=== PATIENT | male | born 1965 | race Caucasian/White ===

== ENCOUNTER 2016-12-15 13:13 | Inpatient (IN) | payer OTHER ==
[2016-12-15] MEDS: ceFAZolin 2 GM/DEXTROSE 100 ML IV SCH ×2 (13:24→21:41)
[2016-12-15] MEDS ORDERED: SUCCINYLCHOLINE CHLORIDE 200 MG/10 ML VIAL IVP ONE (13:27)
[2016-12-15] MEDS ORDERED: fentaNYL 100 MCG/2 ML INJ ONE ×4 (13:27→19:58)
[2016-12-15] MEDS ORDERED: ETOMIDATE 20 MG/10 ML VIAL IVP ONE (13:27)
[2016-12-15] MEDS ORDERED: fentaNYL 100 MCG/2 ML INJ IVP ONE ×4 (13:29→14:46)
[2016-12-15] MEDS ORDERED: KETAMINE 500 MG in D5W 500 ML IV SCH (13:30)
[2016-12-15] MEDS ORDERED: TDAP ADULT 0.5 ML INJ (BOOSTRIX) IM ONE (13:30)
[2016-12-15] MEDS ORDERED: NARCOTIC DRIP BAG-TOTAL ALL TYPES IV PRN (13:40)
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
[2016-12-15] MEDS ORDERED: PANTOPRAZOLE SODIUM 40 MG VIAL ONE (13:50)
[2016-12-15] MEDS ORDERED: TRANEXAMIC ACID 1,000 MG/10 ML VIAL ONE (13:51)
[2016-12-15] MEDS ORDERED: NS 100 ML BAG IV ONE (13:51)
[2016-12-15] MEDS ORDERED: KETAMINE 100 MG/10 ML SYR IVP ONE ×3 (14:15→21:23)
[2016-12-15 15:08] LABS: BASE EXCESS -9.3 mEq/L (-2.5-2.5); BICARBONATE 18 mEq/L (22-26); MEASURED OXYGEN SATURATION 97 % (92-95); PCO2 44 mmHg (34-38); PO2 117 mmHg (65-75); TCO2 19 mEq/L (23-27)
[2016-12-15 15:09] LABS: O2 CONCENTRATIION 100 % (0-100); P/F RATIO 117 RATIO
[2016-12-15] MEDS ORDERED: PROPOFOL/EMULSION 1,000 MG/100 ML BOTTLE IV ONE (15:19)
[2016-12-15] MEDS: PANTOPRAZOLE SODIUM 80 MG in NS 100 ML IV SCH (15:23)
[2016-12-15] MEDS ORDERED: PROPOFOL/EMULSION 50 ML IV ONE (15:24)
[2016-12-15] MEDS ORDERED: PROPOFOL 200 MG/20 ML VIAL IVP ONE (15:28)
[2016-12-15 15:41] LABS: % IMMATURE GRANULYOCYTES 0.7 % (0.0-1.1); ABSOLUTE IMMATURE GRANULOCYTES 0.07 10^3/uL (0.00-0.10); ADD DIFF? NO; ADD MORPH? NO; ADD SCAN? YES; ATYPICAL LYMPHOCYTE FLAG 10 (0-99); FRAGMENT RBC FLAG 0 (0-99); HEMATOCRIT 36.6 % (40.0-51.0); HEMOGLOBIN 12.1 g/dL (13.7-17.5); LIPEMIA HEMOLYSIS FLAG 80 (0-99); MEAN CELL HEMOGLOBIN 30.1 pg (27.9-34.1); MEAN CELL HEMOGLOBIN CONCENTR. 33.1 g/dL (32.4-36.7); MEAN PLATELET VOLUME 10.1 fL (8.7-11.7); PLATELET COUNT 131 10^3/uL (150-400); RED BLOOD CELL COUNT 4.02 10^6/uL (4.40-6.38); RED CELL DISTRIBUTION WIDTH 13.7 % (11.5-15.2)
[2016-12-15 15:43] LABS: LEFT SHIFT FLG 130 (0-99); PLATELET CLUMPS FLAG 130 (0-99)
[2016-12-15 15:52] LABS: APTT 36.1 SEC (23.0-38.0); INR 1.25 (0.83-1.16); PROTIME(PATIENT) 15.7 SEC (12.0-15.0)
[2016-12-15] MEDS ORDERED: LABETALOL HCL 5 MG/ML 20 ML MDV ONE (16:02)
[2016-12-15 16:03] LABS: ALBUMIN 3.5 g/dL (3.5-5.0); ANION GAP 16 mEq/L (8-16); ASPARTATE AMINOTRANSFERASE 167 IU/L (17-59); BILIRUBIN,TOTAL 1.1 mg/dL (0.1-1.4); CALCIUM 8.1 mg/dL (8.5-10.4); CARBON DIOXIDE 19 mEq/l (22-31); CHLORIDE 106 mEq/L (97-110); CREATININE 1.1 mg/dL (0.7-1.3); ETHANOL SERUM < 10 mg/dL (0-10); GLOMERULAR FILTRATION RATE > 60; GLUCOSE 141 mg/dL (70-100); LACTATE DEHYDROGENASE 1710 IU/L (313-618); MAGNESIUM 1.9 mg/dL (1.6-2.3); POTASSIUM 4.2 mEq/L (3.5-5.2); SODIUM 141 mEq/L (134-144)
[2016-12-15] MEDS ORDERED: LABETALOL HCL 5 MG/ML 20 ML MDV IVP ONE (16:04)
[2016-12-15 16:06] LABS: SCAN POSITIVE
[2016-12-15] MEDS ORDERED: ADENOSINE 6 MG/2 ML VIAL ONE (16:08)
[2016-12-15 16:11] LABS: PLATELET ESTIMATE ADEQUATE (ADEQ)
[2016-12-15 16:12] LABS: ACANTHOCYTES 1+; ECHINOCYTES 1+
[2016-12-15] MEDS ORDERED: DILTIAZEM 25 MG/5 ML VIAL IVP ONE (16:19)
[2016-12-15] MEDS ORDERED: DILTIAZEM 25 MG/5 ML VIAL IVP SCH (16:20)
[2016-12-15] MEDS ORDERED: DILTIAZEM 125 MG in D5W 125 ML IV ONE (16:23)
[2016-12-15] MEDS ORDERED: DEXMEDETOMIDINE HCL 400 MCG in NS 100 ML IV ONE (16:30)
[2016-12-15] MEDS ORDERED: DEXMEDETOMIDINE HCL 400 MCG in NS 100 ML IV SCH (16:30)
[2016-12-15] MEDS ORDERED: KETAMINE 100 MG/10 ML SYR ONE ×5 (16:40→21:02)
[2016-12-15] MEDS ORDERED: ROCURONIUM 100 MG/10 ML VIAL IVP ONE (16:41)
[2016-12-15 16:55] LABS: COLOR PALE YELLOW; LEUKOCYTE ESTERASE,URINE NEGATIVE (NEGATIVE); NITRITE,URINE NEGATIVE (NEGATIVE)
--- NOTE | 2016-12-15 17:02 | CPEKG ---
Heart Rate: 87 RR Interval: 690 P-R Interval: 152 QRSD Interval: 72 QT Interval: 336 QTC Interval: 404 P Mayer: 44 QRS Mayer: 45 T Wave Mayer: 48 EKG Severity - NORMAL ECG - EKG Impression: SINUS RHYTHM Electronically Signed By: Shaan Hernandez 15-Dec-2016 21:04:36
--- NOTE | 2016-12-15 17:02 | CPEKG ---
Heart Rate: 157 RR Interval: 382 QRSD Interval: 68 QT Interval: 296 QTC Interval: 479 QRS Thorndike: 34 T Wave Thorndike: -13 EKG Severity - ABNORMAL ECG - EKG Impression: ATRIAL FIBRILLATION, V-RATE 116-181 EKG Impression: BORDERLINE T ABNORMALITIES, INFERIOR LEADS EKG Impression: BORDERLINE PROLONGED QT INTERVAL Electronically Signed By: Shaan Hernandez 15-Dec-2016 21:04:36
[2016-12-15] MEDS ORDERED: NS 1,000 ML IV ONE (17:16)
[2016-12-15] MEDS ORDERED: PHENYLEPHRINE HCL 100 MCG/ML SYR IVP ONE (17:17)
[2016-12-15] MEDS ORDERED: PHENYLEPHRINE HCL 50 MG in D5W 250 ML IV ONE (17:28)
[2016-12-15] MEDS ORDERED: PHENYLEPHRINE HCL 50 MG in D5W 250 ML IV SCH ×2 (17:30→19:00)
[2016-12-15] MEDS ORDERED: VASOPRESSIN/DEXTROSE 250 ML IV SCH (17:32)
[2016-12-15 17:40] LABS: PHENCYCLIDINE URINE BCH < 6 ng/ml (NEGATIVE); PHENCYCLIDINE URINE BCH NEGATIVE (NEGATIVE); TETRAHYDROCANNABINOL URINE < 5 ng/mL (NEGATIVE); TETRAHYDROCANNABINOL URINE NEGATIVE (NEGATIVE)
[2016-12-15 17:43] LABS: ADD MORPH? NO; ATYPICAL LYMPHOCYTE FLAG 10 (0-99); FRAGMENT RBC FLAG 0 (0-99); HEMATOCRIT 30.1 % (40.0-51.0); HEMOGLOBIN 10.1 g/dL (13.7-17.5); LIPEMIA HEMOLYSIS FLAG 80 (0-99); MEAN CELL HEMOGLOBIN 30.4 pg (27.9-34.1); MEAN CELL HEMOGLOBIN CONCENTR. 33.6 g/dL (32.4-36.7); MEAN CELL VOLUME 90.7 fL (81.5-99.8); MEAN PLATELET VOLUME 9.7 fL (8.7-11.7); PLATELET CLUMPS FLAG 0 (0-99); PLATELET COUNT 101 10^3/uL (150-400); RED BLOOD CELL COUNT 3.32 10^6/uL (4.40-6.38); RED CELL DISTRIBUTION WIDTH 13.9 % (11.5-15.2)
[2016-12-15 17:50] LABS: LEFT SHIFT FLG 100 (0-99)
[2016-12-15] MEDS ORDERED: VASOPRESSIN/DEXTROSE 250 ML IV ONE ×2 (18:00→19:30)
[2016-12-15 18:10] LABS: ALANINE AMINOTRANSFERASE 98 IU/L (21-72); ALBUMIN 2.5 g/dL (3.5-5.0); ALKALINE PHOSPHATASE 47 IU/L (38-126); ANION GAP 8 mEq/L (8-16); ASPARTATE AMINOTRANSFERASE 149 IU/L (17-59); BILIRUBIN,TOTAL 1.2 mg/dL (0.1-1.4); CALCIUM 6.9 mg/dL (8.5-10.4); CARBON DIOXIDE 23 mEq/l (22-31); CHLORIDE 110 mEq/L (97-110); CREATININE 1.3 mg/dL (0.7-1.3); GLOMERULAR FILTRATION RATE 59; GLUCOSE 105 mg/dL (70-100); MAGNESIUM 1.6 mg/dL (1.6-2.3); POTASSIUM 4.5 mEq/L (3.5-5.2); SODIUM 141 mEq/L (134-144); TOTAL PROTEIN 4.9 g/dL (6.3-8.2)
[2016-12-15 18:14] LABS: ADD SCAN? NO
[2016-12-15 18:15] LABS: ADD DIFF? YES; SCAN POSITIVE
[2016-12-15 18:18] LABS: TEG CONTAINER Citrated Kaolin
[2016-12-15 18:21] LABS: PLATELET ESTIMATE DECREASED (ADEQ)
[2016-12-15 18:23] LABS: ECHINOCYTES 1+
[2016-12-15 18:31] LABS: ALPHA ANGLE 63.7 degrees (53-72); MAXIMUM AMPLITUDE 58.3 mm (50-70); R TIME 4.3 minutes (5-10)
[2016-12-15] MEDS ORDERED: NALOXONE HCL 0.4 MG/ML INJ IVP PRN (18:33)
[2016-12-15] MEDS ORDERED: ceFAZolin 2 GM in D5W 100 ML IV SCH (18:45)
[2016-12-15] MEDS ORDERED: VASOPRESSIN IV ONE (18:53)
[2016-12-15] MEDS ORDERED: NS IV ONE (18:53)
[2016-12-15] MEDS ORDERED: TRANEXAMIC ACID 1,000 MG in NS 500 ML IV ONE (18:55)
[2016-12-15] MEDS ORDERED: VASOPRESSIN 25 UNIT in D5W 250 ML IV ONE (19:30)
[2016-12-15] MEDS: fentaNYL/NACL 100 ML IV SCH (20:18)
[2016-12-15 20:28] LABS: BASE EXCESS -4.2 mEq/L (-2.5-2.5); BICARBONATE 21 mEq/L (22-26); MEASURED OXYGEN SATURATION 84 % (92-95); PCO2 44 mmHg (34-38); PO2 51 mmHg (65-75); TCO2 23 mEq/L (23-27)
[2016-12-15 20:39] LABS: HEMATOCRIT 32.8 % (40.0-51.0); HEMOGLOBIN 11.1 g/dL (13.7-17.5); MEAN CELL HEMOGLOBIN 30.1 pg (27.9-34.1); MEAN CELL HEMOGLOBIN CONCENTR. 33.8 g/dL (32.4-36.7); MEAN CELL VOLUME 88.9 fL (81.5-99.8); RED BLOOD CELL COUNT 3.69 10^6/uL (4.40-6.38); RED CELL DISTRIBUTION WIDTH 13.6 % (11.5-15.2)
[2016-12-15 20:51] LABS: ALANINE AMINOTRANSFERASE 92 IU/L (21-72); ALBUMIN 2.8 g/dL (3.5-5.0); ALKALINE PHOSPHATASE 49 IU/L (38-126); ANION GAP 10 mEq/L (8-16); ASPARTATE AMINOTRANSFERASE 162 IU/L (17-59); BILIRUBIN,TOTAL 1.6 mg/dL (0.1-1.4); CARBON DIOXIDE 21 mEq/l (22-31); CHLORIDE 108 mEq/L (97-110); CREATININE 1.1 mg/dL (0.7-1.3); GLOMERULAR FILTRATION RATE > 60; GLUCOSE 151 mg/dL (70-100); SODIUM 139 mEq/L (134-144); TOTAL PROTEIN 5.4 g/dL (6.3-8.2)
[2016-12-15] MEDS ORDERED: ETOMIDATE 40 MG/20 ML INJ ONE (21:03)
[2016-12-15] MEDS ORDERED: SUCCINYLCHOLINE CHLORIDE*ANESTHESIA ONLY*200 MG/10 ML SYR IVP ONE (21:03)
[2016-12-15] MEDS ORDERED: ROCURONIUM 100 MG/10 ML VIAL ONE (21:04)
[2016-12-15] MEDS ORDERED: LIDOCAINE 2% 5 ML SDV ONE (21:05)
[2016-12-15 21:11] LABS: BASE EXCESS -3.9 mEq/L (-2.5-2.5); BICARBONATE 20 mEq/L (22-26); MEASURED OXYGEN SATURATION 100 % (92-95); PCO2 37 mmHg (34-38); PO2 244 mmHg (65-75); TCO2 21 mEq/L (23-27)
[2016-12-15 21:12] LABS: ASSIST CONTROL YES; END TIDAL CO2 28; PATIENT RATE 19
[2016-12-15 21:15] LABS: O2 CONCENTRATIION 100 % (0-100); P/F RATIO 244 RATIO
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
[2016-12-15 22:32] LABS: TEG CONTAINER Citrated Kaolin
[2016-12-15 22:34] LABS: K TIME 2.1 minutes (1-3); MAXIMUM AMPLITUDE 56.9 mm (50-70); R TIME 4.1 minutes (5-10)
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
[2016-12-15] MEDS: ACETAMINOPHEN 500 MG TAB PO SCH (22:50)
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
[2016-12-16] MEDS: FAMOTIDINE 20 MG/NACL 50 ML IV SCH ×3 (01:25→20:56)
[2016-12-16] MEDS: fentaNYL/NACL 100 ML IV SCH ×2 (04:09→16:43)
[2016-12-16] MEDS: NS 1,000 ML IV SCH (04:18)
[2016-12-16] MEDS: ceFAZolin 2 GM/DEXTROSE 100 ML IV SCH ×3 (04:18→20:54)
[2016-12-16 05:19] LABS: ALANINE AMINOTRANSFERASE 76 IU/L (21-72); ALBUMIN 2.7 g/dL (3.5-5.0); ALKALINE PHOSPHATASE 51 IU/L (38-126); ANION GAP 9 mEq/L (8-16); ASPARTATE AMINOTRANSFERASE 142 IU/L (17-59); BILIRUBIN,TOTAL 1.4 mg/dL (0.1-1.4); CALCIUM 7.3 mg/dL (8.5-10.4); CARBON DIOXIDE 23 mEq/l (22-31); CHLORIDE 107 mEq/L (97-110); GLOMERULAR FILTRATION RATE > 60; GLUCOSE 150 mg/dL (70-100); POTASSIUM 3.9 mEq/L (3.5-5.2); SODIUM 139 mEq/L (134-144); TOTAL PROTEIN 5.3 g/dL (6.3-8.2)
[2016-12-16 05:23] LABS: ADD MORPH? NO; ADD SCAN? YES; ATYPICAL LYMPHOCYTE FLAG 0 (0-99); FRAGMENT RBC FLAG 0 (0-99); HEMATOCRIT 29.3 % (40.0-51.0); HEMOGLOBIN 10.1 g/dL (13.7-17.5); LIPEMIA HEMOLYSIS FLAG 90 (0-99); MEAN CELL HEMOGLOBIN 30.1 pg (27.9-34.1); MEAN CELL HEMOGLOBIN CONCENTR. 34.5 g/dL (32.4-36.7); MEAN CELL VOLUME 87.5 fL (81.5-99.8); MEAN PLATELET VOLUME 10.4 fL (8.7-11.7); PLATELET CLUMPS FLAG 10 (0-99); PLATELET COUNT 85 10^3/uL (150-400); RED BLOOD CELL COUNT 3.35 10^6/uL (4.40-6.38); RED CELL DISTRIBUTION WIDTH 13.8 % (11.5-15.2)
[2016-12-16 05:24] LABS: LEFT SHIFT FLG 300 (0-99)
[2016-12-16 06:29] LABS: SCAN POSITIVE
[2016-12-16 06:30] LABS: ADD DIFF? YES
[2016-12-16 06:34] LABS: PLATELET ESTIMATE DECREASED (ADEQ)
[2016-12-16] MEDS ORDERED: fentaNYL 100 MCG/2 ML INJ ONE ×3 (07:02→12:17)
--- NOTE | 2016-12-16 07:45 | TRAUMAPN ---
Assessment/Plan: 12/16/2016 PAD#1 Tertiary Assessment: 1) Neurologic - Patient awake ( intubated) but following commands and moving all extremities. Still in C-collar (CT neck negative) as unable to yet get a good exam. Continue HOB elevated 30 - awaiting neurosurgery input. 2) Respiratory - AM ABG pending, Intubated, minimal secretions, Vent settings: FiO2 .5, AC 16, TV 650,Peep 5 no wean planned as going to OR this AM Chest tube - minimal air leak, CXR - stable per radiology verbal report. Air exchange equal. no changes planned unless indicated by ABG. 3) Cardiovascular - still on Vasopressin at .4, Jori came off last night but had to be restarted at low dose this AM to maintain MAP > 80. Good urine output (100cc/hr). In NSR, not on diltiazem drip. Hct stable. Right triple lumen placed and left femoral vein access removed. All resuscitation lines (and IO) removed. left femoral A-line placed after inability to get radial a-lines. would like to go to radial if possible as he stabilizes. 4) Coagulopathy - TEG R up last night on repeat but falling. Did get 2 units FFP. TXA infusion completed. Ultrasound this AM show only small clot in greater saphenous vein in right calf. 5) NG - 450 cc green fluid out over night. No bowel sounds yet 6) Fractures - Right sub capital hip fx and Fracture right femur (x2) to be addressed this AM. 7) Wounds - On Ancef, Right elbow, right lateral thigh and left medial knee. All washed out and closed yesterday. Will be washed out again today Plan: Now that optimized will await neurosurgery agreement to proceed to OR for orthopedic procedures. Subjective: intubated but responds to commands Objective: Vital Signs Temp Pulse Resp BP Pulse Ox 37.9 C 75 16 121/67 H 100 12/16/16 06:00 12/16/16 06:00 12/16/16 06:00 12/16/16 06:00 12/16/16 06:00 Laboratory Results 12/16/16 04:40 12/16/16 04:40 12/15/16 12/16/16 12/17/16 05:59 05:59 05:59 Intake Total 3299.0 Output Total 1840 Balance 1459.0 PT 16.6 SEC (12.0-15.0) H 12/15/16 17:31 INR 1.34 (0.83-1.16) H 12/15/16 17:31 - C-Spine Clearance Cervical Spine Cleared: No Physical Exam - Physical Exam General Appearance: alert, mild distress EENT: PERRL/EOMI, normal ENT inspection Neck: other (CT negative but remains in C-collar until he can cooperate with evaluation) Respiratory: lungs clear, normal breath sounds, other (CXR shows chest tube, ET tube and lines in good position ) Cardiac/Chest: regular rate, rhythm, other (on vasopressin and neosynephrine) Peripheral Pulses: 1+: dorsalis-pedis (L) (Pulses biphasic), 2+: dorsalis-pedis (R) Abdomen: distended, other (no bowel sounds) Male Genitalia: deferred Rectal: deferred Back: Other (OK when checked on admission) Skin: normal color, warm/dry Extremities: other (right leg swollen, warm and in minimal traction) Neuro/Psych: alert Time Spent w/Patient (minutes): 30
[2016-12-16] MEDS: ACETAMINOPHEN 500 MG TAB PO SCH ×3 (07:54→20:56)
[2016-12-16 08:02] LABS: ASSIST CONTROL YES; BASE EXCESS -1.9 mEq/L (-2.5-2.5); BICARBONATE 22 mEq/L (22-26); MEASURED OXYGEN SATURATION 99 % (92-95); PCO2 37 mmHg (34-38); PO2 142 mmHg (65-75); TCO2 23 mEq/L (23-27)
[2016-12-16 08:03] LABS: END TIDAL CO2 27; O2 CONCENTRATIION 50 % (0-100); P/F RATIO 284 RATIO; TOTAL RATE 16
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
[2016-12-16] MEDS: PANTOPRAZOLE SODIUM 40 MG in NS 100 ML IV SCH ×2 (08:44→20:56)
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
[2016-12-16] MEDS ORDERED: ROCURONIUM 100 MG/10 ML VIAL ONE ×2 (10:27→13:10)
[2016-12-16] MEDS ORDERED: BUPIVACAINE/EPI 0.5% 30 ML SDV ONE (10:34)
[2016-12-16] MEDS ORDERED: MIDAZOLAM 2 MG/2 ML VIAL ONE (10:51)
[2016-12-16] MEDS ORDERED: ceFAZolin 1 GM/5 ML SYR ONE (11:31)
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
[2016-12-16] MEDS ORDERED: ceFAZolin 1 GM VIAL ONE ×2 (11:51)
[2016-12-16 13:42] LABS: HEMATOCRIT 27.8 % (40.0-51.0); HEMOGLOBIN 9.6 g/dL (13.7-17.5)
[2016-12-16 14:09] LABS: BICARBONATE 20 mEq/L (22-26); MEASURED OXYGEN SATURATION 98 % (92-95); PCO2 36 mmHg (34-38); PO2 110 mmHg (65-75); TCO2 21 mEq/L (23-27)
[2016-12-16] MEDS ORDERED: VASOPRESSIN/DEXTROSE 250 ML IV SCH (15:00)
--- NOTE | 2016-12-16 15:45 | POSTANESTH ---
Post Anesthetic Evaluation Cardiovascular Status: Similar to Pre-Op Cond Respiratory Status: Similar to Pre-op Cond. Level of Consciousness/Mental Status: Unconscious Pain Control: Adequate, Prn Tx Ordered Nausea/Vomiting Control: Adequate, Prn Tx Ordered Complications Possibly Related to Anesthesia: None Noted
--- NOTE | 2016-12-16 16:03 | POSTOPPROG ---
Post Op Note Date of Operation: 12/16/16 Surgeon: Jamil Cleaning Raisin Washer: Tarun Galaviz Anesthesiologist: Rupali Anesthesia: GET(General Endotracheal) Pre-op Diagnosis: open distal femur fracture RT, Rt femoraal neck fracture Post-op Diagnosis: same Procedure: ORIF distal femur, I&D, IMN rt hip Inf/Abcess present in the surg proc area at time of surgery?: No EBL: 100-500 Complications: none
[2016-12-16 16:19] LABS: % IMMATURE GRANULYOCYTES 0.5 % (0.0-1.1); ABSOLUTE IMMATURE GRANULOCYTES 0.03 10^3/uL (0.00-0.10); ADD DIFF? NO; ADD MORPH? NO; ADD SCAN? YES; ATYPICAL LYMPHOCYTE FLAG 0 (0-99); FRAGMENT RBC FLAG 0 (0-99); HEMATOCRIT 27.1 % (40.0-51.0); HEMOGLOBIN 9.4 g/dL (13.7-17.5); LEFT SHIFT FLG 160 (0-99); LIPEMIA HEMOLYSIS FLAG 90 (0-99); MEAN CELL HEMOGLOBIN 30.4 pg (27.9-34.1); MEAN CELL HEMOGLOBIN CONCENTR. 34.7 g/dL (32.4-36.7); MEAN CELL VOLUME 87.7 fL (81.5-99.8); MEAN PLATELET VOLUME 10.2 fL (8.7-11.7); PLATELET CLUMPS FLAG 0 (0-99); PLATELET COUNT 74 10^3/uL (150-400); RED BLOOD CELL COUNT 3.09 10^6/uL (4.40-6.38)
[2016-12-16 16:28] LABS: ANION GAP 8 mEq/L (8-16); CALCIUM 6.9 mg/dL (8.5-10.4); CARBON DIOXIDE 23 mEq/l (22-31); CHLORIDE 105 mEq/L (97-110); CREATININE 0.8 mg/dL (0.7-1.3); GLOMERULAR FILTRATION RATE > 60; GLUCOSE 143 mg/dL (70-100); MAGNESIUM 1.7 mg/dL (1.6-2.3); POTASSIUM 4.2 mEq/L (3.5-5.2); SODIUM 136 mEq/L (134-144)
[2016-12-16 16:31] LABS: INR 1.3 (0.83-1.16); PROTIME(PATIENT) 16.2 SEC (12.0-15.0)
[2016-12-16 16:33] LABS: APTT 33.1 SEC (23.0-38.0)
[2016-12-16 16:46] LABS: SCAN NEGATIVE
[2016-12-16 17:01] LABS: BASE EXCESS -2.5 mEq/L (-2.5-2.5); BICARBONATE 24 mEq/L (22-26); MEASURED OXYGEN SATURATION 96 % (92-95); PCO2 50 mmHg (34-38); PO2 88 mmHg (65-75); TCO2 25 mEq/L (23-27)
[2016-12-16 17:02] LABS: ASSIST CONTROL YES; END TIDAL CO2 34; O2 CONCENTRATIION 40 % (0-100); P/F RATIO 220 RATIO
[2016-12-16] MEDS: PANTOPRAZOLE SODIUM 80 MG in NS 100 ML IV SCH (21:46)
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
[2016-12-17] MEDS: ceFAZolin 2 GM/DEXTROSE 100 ML IV SCH ×3 (03:15→20:26)
[2016-12-17 03:59] LABS: ADD MORPH? NO; ATYPICAL LYMPHOCYTE FLAG 0 (0-99); FRAGMENT RBC FLAG 0 (0-99); HEMATOCRIT 24.5 % (40.0-51.0); HEMOGLOBIN 8.4 g/dL (13.7-17.5); LIPEMIA HEMOLYSIS FLAG 90 (0-99); MEAN CELL HEMOGLOBIN 30.3 pg (27.9-34.1); MEAN CELL HEMOGLOBIN CONCENTR. 34.3 g/dL (32.4-36.7); MEAN CELL VOLUME 88.4 fL (81.5-99.8); MEAN PLATELET VOLUME 10.5 fL (8.7-11.7); PLATELET CLUMPS FLAG 0 (0-99); PLATELET COUNT 68 10^3/uL (150-400); RED BLOOD CELL COUNT 2.77 10^6/uL (4.40-6.38); RED CELL DISTRIBUTION WIDTH 13.8 % (11.5-15.2)
[2016-12-17 04:01] LABS: ADD DIFF? YES; ADD SCAN? NO; LEFT SHIFT FLG 130 (0-99)
[2016-12-17 04:16] LABS: ANION GAP 7 mEq/L (8-16); APTT 31.4 SEC (23.0-38.0); CARBON DIOXIDE 23 mEq/l (22-31); CHLORIDE 104 mEq/L (97-110); CREATININE 0.7 mg/dL (0.7-1.3); GLOMERULAR FILTRATION RATE > 60; GLUCOSE 159 mg/dL (70-100); INR 1.3 (0.83-1.16); POTASSIUM 3.9 mEq/L (3.5-5.2); PROTIME(PATIENT) 16.2 SEC (12.0-15.0); SODIUM 134 mEq/L (134-144)
[2016-12-17 04:33] LABS: PLATELET ESTIMATE DECREASED (ADEQ)
[2016-12-17] MEDS: ACETAMINOPHEN 500 MG TAB PO SCH ×3 (05:15→20:23)
[2016-12-17 05:16] LABS: BASE EXCESS -1.3 mEq/L (-2.5-2.5); BICARBONATE 24 mEq/L (22-26); MEASURED OXYGEN SATURATION 96 % (92-95); TCO2 26 mEq/L (23-27)
[2016-12-17 05:17] LABS: PCO2 50 mmHg (34-38); PO2 88 mmHg (65-75)
[2016-12-17 05:19] LABS: CPAP YES; O2 CONCENTRATIION 40 % (0-100); P/F RATIO 220 RATIO; PATIENT RATE 9; PRESSURE SUPPORT 7
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
[2016-12-17 08:20] LABS: BASE EXCESS -0.8 mEq/L (-2.5-2.5); BICARBONATE 23 mEq/L (22-26); MEASURED OXYGEN SATURATION 99 % (92-95); PCO2 38 mmHg (34-38); PO2 119 mmHg (65-75); TCO2 24 mEq/L (23-27)
[2016-12-17 08:25] LABS: CPAP YES; END TIDAL CO2 28; P/F RATIO 298 RATIO; PRESSURE SUPPORT 7
[2016-12-17 08:26] LABS: O2 CONCENTRATIION 40 % (0-100)
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
[2016-12-17] MEDS: PANTOPRAZOLE SODIUM 40 MG in NS 100 ML IV SCH ×2 (09:27→20:23)
[2016-12-17] MEDS: FAMOTIDINE 20 MG/NACL 50 ML IV SCH (10:16)
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
[2016-12-17] MEDS: ENOXAPARIN 30 MG/0.3 ML SYR SC SCH ×2 (12:42→20:23)
[2016-12-17] MEDS: fentaNYL/NACL 100 ML IV SCH (13:18)
[2016-12-17] MEDS: NS 1,000 ML IV SCH (15:09)
--- NOTE | 2016-12-17 15:33 | WOCRNPDOC ---
WOCRN Advanced Assessment Note - Skin Integrity Problem, Advanced Assess Right Thigh Laceration Dressing Type: ABD Pad Dressing Description: Clean/Dry, Intact Left Knee Laceration Dressing Description: Clean/Dry, Intact Right Elbow Laceration Dressing Type: Dressing Sponge Dressing Description: Saturated Closure Description: [place] Exudate Amount: Excessive Exudate Color: Red Exudate Characteristic(s): Bloody Integumentary Issue Intervention: Dressing Changed (ordered), Dressing Removed Faye Wound Tissue: Intact Site Odor: None Skin Integrity Problem Comment: Excess bleeding around aicha. Discussed instructions with BEBO Cuellar and provided supplies for care. Left Lower Leg Laceration Dressing Type: ABD Pad Dressing Description: Shadowed Exudate Amount: Moderate Exudate Color: Red Exudate Characteristic(s): Bloody Integumentary Issue Intervention: Dressing Changed (orders written), Dressing Removed Faye Wound Tissue: Contused Faye Wound Swelling: Mild Wound Bed Color: Red Wound Bed Constitution: Smooth Tissue Wound Edges: Irregular Site Odor: None Skin Integrity Problem Comment: Abraded contusion, with some bleeding still active. Discussed wound care with BEBO Cuellar, and provided supplies. Left Groin Laceration Dressing Type: Dressing Sponge Dressing Description: Saturated Exudate Amount: Excessive Exudate Color: Red Exudate Characteristic(s): Bloody Integumentary Issue Intervention: Dressing Changed (ordered), Dressing Removed Faye Wound Tissue: Ecchymotic, Intact Faye Wound Swelling: Mild Wound Bed Color: Red Wound Bed Constitution: Smooth Tissue Wound Edges: Irregular Site Odor: None Skin Integrity Problem Comment: Active bleeding--provided BEBO Cuellar with supplies and orders for care.
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
[2016-12-18] MEDS: ceFAZolin 2 GM/DEXTROSE 100 ML IV SCH ×3 (03:34→20:40)
[2016-12-18 05:03] LABS: % IMMATURE GRANULYOCYTES 0.9 % (0.0-1.1); ABSOLUTE IMMATURE GRANULOCYTES 0.05 10^3/uL (0.00-0.10); ADD DIFF? NO; ADD MORPH? NO; ADD SCAN? NO; ATYPICAL LYMPHOCYTE FLAG 10 (0-99); FRAGMENT RBC FLAG 0 (0-99); HEMATOCRIT 22.2 % (40.0-51.0); HEMOGLOBIN 7.6 g/dL (13.7-17.5); LEFT SHIFT FLG 80 (0-99); LIPEMIA HEMOLYSIS FLAG 90 (0-99); MEAN CELL HEMOGLOBIN 30.3 pg (27.9-34.1); MEAN CELL HEMOGLOBIN CONCENTR. 34.2 g/dL (32.4-36.7); MEAN CELL VOLUME 88.4 fL (81.5-99.8); MEAN PLATELET VOLUME 11.1 fL (8.7-11.7); PLATELET CLUMPS FLAG 0 (0-99); PLATELET COUNT 78 10^3/uL (150-400); RED BLOOD CELL COUNT 2.51 10^6/uL (4.40-6.38); RED CELL DISTRIBUTION WIDTH 13.6 % (11.5-15.2)
[2016-12-18] MEDS: ACETAMINOPHEN 500 MG TAB PO SCH ×3 (05:08→20:39)
[2016-12-18 05:12] LABS: INR 1.15 (0.83-1.16); PROTIME(PATIENT) 14.6 SEC (12.0-15.0)
[2016-12-18 05:13] LABS: APTT 34.1 SEC (23.0-38.0)
[2016-12-18 05:14] LABS: BASE EXCESS 1.6 mEq/L (-2.5-2.5); BICARBONATE 26 mEq/L (22-26); MEASURED OXYGEN SATURATION 98 % (92-95); PCO2 47 mmHg (34-38); PO2 104 mmHg (65-75); TCO2 28 mEq/L (23-27)
[2016-12-18 05:15] LABS: CPAP YES; O2 CONCENTRATIION 40 % (0-100); P/F RATIO 260 RATIO
[2016-12-18 05:16] LABS: END TIDAL CO2 39; PATIENT RATE 12
[2016-12-18 05:17] LABS: PRESSURE SUPPORT 7
[2016-12-18 05:25] LABS: ALANINE AMINOTRANSFERASE 51 IU/L (21-72); ALBUMIN 2.5 g/dL (3.5-5.0); ALKALINE PHOSPHATASE 45 IU/L (38-126); ANION GAP 9 mEq/L (8-16); ASPARTATE AMINOTRANSFERASE 98 IU/L (17-59); BILIRUBIN,TOTAL 0.6 mg/dL (0.1-1.4); CALCIUM 7.4 mg/dL (8.5-10.4); CARBON DIOXIDE 25 mEq/l (22-31); CHLORIDE 104 mEq/L (97-110); CREATININE 0.7 mg/dL (0.7-1.3); GLOMERULAR FILTRATION RATE > 60; GLUCOSE 109 mg/dL (70-100); POTASSIUM 3.7 mEq/L (3.5-5.2); SODIUM 138 mEq/L (134-144); TOTAL PROTEIN 4.9 g/dL (6.3-8.2)
[2016-12-18] MEDS: PANTOPRAZOLE SODIUM 40 MG in NS 100 ML IV SCH ×2 (08:01→20:49)
[2016-12-18] MEDS: ENOXAPARIN 30 MG/0.3 ML SYR SC SCH ×2 (08:01→08:38)
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
[2016-12-18] MEDS: NS 1,000 ML IV SCH ×2 (10:57→20:56)
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
[2016-12-18 11:54] LABS: HEMATOCRIT 21.3 % (40.0-51.0); HEMOGLOBIN 7.3 g/dL (13.7-17.5)
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
[2016-12-19] MEDS: ceFAZolin 2 GM/DEXTROSE 100 ML IV SCH ×3 (03:46→20:00)
[2016-12-19 04:06] LABS: % IMMATURE GRANULYOCYTES 1.3 % (0.0-1.1); ABSOLUTE IMMATURE GRANULOCYTES 0.06 10^3/uL (0.00-0.10); ABSOLUTE NRBC COUNT 0.02 10^3/uL (0-0.01); ADD DIFF? NO; ADD MORPH? NO; ADD SCAN? NO; ATYPICAL LYMPHOCYTE FLAG 10 (0-99); FRAGMENT RBC FLAG 0 (0-99); HEMATOCRIT 20.6 % (40.0-51.0); LEFT SHIFT FLG 30 (0-99); LIPEMIA HEMOLYSIS FLAG 90 (0-99); MEAN CELL HEMOGLOBIN 29.3 pg (27.9-34.1); MEAN CELL VOLUME 86.2 fL (81.5-99.8); MEAN PLATELET VOLUME 10.5 fL (8.7-11.7); NRBC-AUTO% 0.4 % (0.0-0.2); PLATELET CLUMPS FLAG 0 (0-99); PLATELET COUNT 92 10^3/uL (150-400); RED BLOOD CELL COUNT 2.39 10^6/uL (4.40-6.38); RED CELL DISTRIBUTION WIDTH 14.7 % (11.5-15.2)
[2016-12-19 04:21] LABS: INR 1.18 (0.83-1.16)
[2016-12-19 04:22] LABS: APTT 32.3 SEC (23.0-38.0)
[2016-12-19 04:24] LABS: ALANINE AMINOTRANSFERASE 44 IU/L (21-72); ALBUMIN 2.3 g/dL (3.5-5.0); ALKALINE PHOSPHATASE 40 IU/L (38-126); ANION GAP 7 mEq/L (8-16); ASPARTATE AMINOTRANSFERASE 76 IU/L (17-59); BILIRUBIN,TOTAL 0.9 mg/dL (0.1-1.4); CALCIUM 7.4 mg/dL (8.5-10.4); CARBON DIOXIDE 25 mEq/l (22-31); CHLORIDE 107 mEq/L (97-110); CREATININE 0.7 mg/dL (0.7-1.3); GLOMERULAR FILTRATION RATE > 60; GLUCOSE 87 mg/dL (70-100); POTASSIUM 3.5 mEq/L (3.5-5.2); SODIUM 139 mEq/L (134-144); TOTAL PROTEIN 4.6 g/dL (6.3-8.2)
[2016-12-19] MEDS: ACETAMINOPHEN 500 MG TAB PO SCH ×3 (06:22→20:07)
[2016-12-19] MEDS: NS 1,000 ML IV SCH ×2 (08:15→18:13)
[2016-12-19] MEDS: PANTOPRAZOLE SODIUM 40 MG in NS 100 ML IV SCH (08:15)
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
[2016-12-19] MEDS: POTASSIUM Cl (KCl) 100 ML IV SCH ×2 (09:08→09:38)
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
[2016-12-19] MEDS: oxyCODONE IR 5 MG TAB PO PRN ×2 (13:44→21:31)
[2016-12-19 15:44] LABS: HEMATOCRIT 26.8 % (40.0-51.0); HEMOGLOBIN 9.1 g/dL (13.7-17.5)
[2016-12-19] MEDS ORDERED: LIDOCAINE 1% 300 MG/30 ML SDV ONE (16:11)
[2016-12-19] MEDS: ENOXAPARIN 30 MG/0.3 ML SYR SC SCH (20:00)
[2016-12-19] MEDS ORDERED: BISACODYL 10 MG SUPP PR PRN (20:02)
[2016-12-19] MEDS: SENNOSIDES/DOCUSATE SODIUM TAB PO SCH (20:07)
[2016-12-19] MEDS ORDERED: PANTOPRAZOLE SODIUM 40 MG TAB PO SCH (21:00)
[2016-12-20] MEDS: oxyCODONE IR 5 MG TAB PO PRN ×4 (03:30→21:09)
[2016-12-20] MEDS: ceFAZolin 2 GM/DEXTROSE 100 ML IV SCH ×3 (03:30→20:54)
[2016-12-20 03:59] LABS: ADD DIFF? YES; ADD MORPH? NO; ADD SCAN? NO; ATYPICAL LYMPHOCYTE FLAG 10 (0-99); FRAGMENT RBC FLAG 0 (0-99); HEMATOCRIT 25.5 % (40.0-51.0); HEMOGLOBIN 8.6 g/dL (13.7-17.5); LEFT SHIFT FLG 30 (0-99); LIPEMIA HEMOLYSIS FLAG 80 (0-99); MEAN CELL HEMOGLOBIN 28.8 pg (27.9-34.1); MEAN CELL HEMOGLOBIN CONCENTR. 33.7 g/dL (32.4-36.7); MEAN CELL VOLUME 85.3 fL (81.5-99.8); MEAN PLATELET VOLUME 10.2 fL (8.7-11.7); PLATELET CLUMPS FLAG 0 (0-99); PLATELET COUNT 108 10^3/uL (150-400); RED BLOOD CELL COUNT 2.99 10^6/uL (4.40-6.38); RED CELL DISTRIBUTION WIDTH 15.7 % (11.5-15.2)
[2016-12-20 04:12] LABS: ANION GAP 9 mEq/L (8-16); CALCIUM 7.5 mg/dL (8.5-10.4); CARBON DIOXIDE 24 mEq/l (22-31); CHLORIDE 108 mEq/L (97-110); CREATININE 0.7 mg/dL (0.7-1.3); GLOMERULAR FILTRATION RATE > 60; GLUCOSE 102 mg/dL (70-100); POTASSIUM 3.2 mEq/L (3.5-5.2); SODIUM 141 mEq/L (134-144)
[2016-12-20 04:31] LABS: PLATELET ESTIMATE DECREASED (ADEQ); POLYCHROMASIA 1+
[2016-12-20] MEDS: NS 1,000 ML IV SCH ×2 (04:35→15:19)
[2016-12-20] MEDS ORDERED: PROTOCOL POTASSIUM 1 DOSE MISC PRN (05:12)
[2016-12-20] MEDS: POTASSIUM Cl (KCl) 50 ML IV SCH ×2 (05:26→07:05)
[2016-12-20] MEDS: ACETAMINOPHEN 500 MG TAB PO SCH ×3 (05:27→21:08)
[2016-12-20] MEDS: PANTOPRAZOLE SODIUM 40 MG TAB PO SCH (08:01)
[2016-12-20] MEDS: ENOXAPARIN 30 MG/0.3 ML SYR SC SCH ×2 (08:01→20:54)
[2016-12-20] MEDS: SENNOSIDES/DOCUSATE SODIUM TAB PO SCH ×3 (08:02→22:58)
[2016-12-20] MEDS: POLYETHYLENE GLYCOL 3350 17 GM PKT PO PRN (08:02)
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
[2016-12-20] MEDS ORDERED: POTASSIUM CITRATE 10 MEQ TAB PO SCH (09:15)
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
[2016-12-20] MEDS: POTASSIUM CL 10 MEQ TAB PO SCH ×2 (10:47→20:55)
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
[2016-12-20 12:57] LABS: HEMATOCRIT 25.8 % (40.0-51.0); HEMOGLOBIN 8.9 g/dL (13.7-17.5)
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
[2016-12-20] MEDS: ONDANSETRON 4 MG/2 ML VIAL IVP PRN (18:19)
[2016-12-20 18:22] LABS: POTASSIUM 3.4 mEq/L (3.5-5.2)
[2016-12-20] MEDS ORDERED: POTASSIUM CL 10 MEQ TAB PO ONE (21:01)
[2016-12-21] MEDS: HYDROmorphONE/DILAUDID 1 MG/ML SYR IVP PRN ×4 (03:07→16:20)
[2016-12-21] MEDS: ceFAZolin 2 GM/DEXTROSE 100 ML IV SCH ×3 (03:12→19:53)
[2016-12-21 05:33] LABS: ADD DIFF? YES; ADD MORPH? NO; ADD SCAN? NO; ATYPICAL LYMPHOCYTE FLAG 20 (0-99); FRAGMENT RBC FLAG 0 (0-99); HEMATOCRIT 26.3 % (40.0-51.0); HEMOGLOBIN 8.7 g/dL (13.7-17.5); LEFT SHIFT FLG 40 (0-99); LIPEMIA HEMOLYSIS FLAG 80 (0-99); MEAN CELL HEMOGLOBIN 28.7 pg (27.9-34.1); MEAN CELL HEMOGLOBIN CONCENTR. 33.1 g/dL (32.4-36.7); MEAN CELL VOLUME 86.8 fL (81.5-99.8); MEAN PLATELET VOLUME 10.7 fL (8.7-11.7); PLATELET CLUMPS FLAG 0 (0-99); PLATELET COUNT 116 10^3/uL (150-400); RED BLOOD CELL COUNT 3.03 10^6/uL (4.40-6.38); RED CELL DISTRIBUTION WIDTH 15.9 % (11.5-15.2)
[2016-12-21 05:56] LABS: ALANINE AMINOTRANSFERASE 45 IU/L (21-72); ALBUMIN 2.5 g/dL (3.5-5.0); ALKALINE PHOSPHATASE 118 IU/L (38-126); ANION GAP 10 mEq/L (8-16); ASPARTATE AMINOTRANSFERASE 59 IU/L (17-59); BILIRUBIN,TOTAL 0.9 mg/dL (0.1-1.4); CALCIUM 7.5 mg/dL (8.5-10.4); CARBON DIOXIDE 23 mEq/l (22-31); CHLORIDE 107 mEq/L (97-110); CREATININE 0.6 mg/dL (0.7-1.3); GLOMERULAR FILTRATION RATE > 60; GLUCOSE 94 mg/dL (70-100); POTASSIUM 3.7 mEq/L (3.5-5.2); SODIUM 140 mEq/L (134-144); TOTAL PROTEIN 5.1 g/dL (6.3-8.2)
[2016-12-21 06:27] LABS: PLATELET ESTIMATE DECREASED (ADEQ)
[2016-12-21 06:28] LABS: POLYCHROMASIA 1+
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
[2016-12-21] MEDS: SENNOSIDES/DOCUSATE SODIUM TAB PO SCH ×2 (08:56→19:54)
[2016-12-21] MEDS: PANTOPRAZOLE SODIUM 40 MG TAB PO SCH (08:58)
[2016-12-21] MEDS: POTASSIUM CL 10 MEQ TAB PO SCH ×2 (08:58→19:54)
[2016-12-21] MEDS: ENOXAPARIN 30 MG/0.3 ML SYR SC SCH ×2 (09:00→19:53)
[2016-12-21] MEDS ORDERED: POTASSIUM CL 10 MEQ TAB PO ONE (10:10)
[2016-12-21] MEDS: oxyCODONE IR 5 MG TAB PO PRN ×2 (15:19→23:10)
[2016-12-21] MEDS: NS 1,000 ML IV SCH (15:22)
[2016-12-21] MEDS: ONDANSETRON 4 MG/2 ML VIAL IVP PRN (17:25)
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
[2016-12-22] MEDS: HYDROmorphONE/DILAUDID 1 MG/ML SYR IVP PRN (00:56)
[2016-12-22] MEDS: ceFAZolin 2 GM/DEXTROSE 100 ML IV SCH ×3 (03:19→20:08)
[2016-12-22 05:17] LABS: POTASSIUM 4.1 mEq/L (3.5-5.2)
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
[2016-12-22] MEDS: SENNOSIDES/DOCUSATE SODIUM TAB PO SCH ×2 (08:17→20:08)
[2016-12-22] MEDS: ENOXAPARIN 30 MG/0.3 ML SYR SC SCH ×2 (08:17→20:08)
[2016-12-22] MEDS: POTASSIUM CL 10 MEQ TAB PO SCH ×2 (08:18→20:08)
[2016-12-22] MEDS: PANTOPRAZOLE SODIUM 40 MG TAB PO SCH (08:18)
[2016-12-22] MEDS: oxyCODONE IR 5 MG TAB PO PRN ×4 (09:50→23:53)
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
[2016-12-22] MEDS: NS 1,000 ML IV SCH ×2 (12:30→23:05)
[2016-12-22] MEDS: DIAZEPAM 5 MG TAB PO PRN ×2 (16:47→21:32)
[2016-12-22] MEDS: METOCLOPRAMIDE 10 MG/2 ML VIAL IVP PRN (16:48)
[2016-12-22 18:26] LABS: POTASSIUM 4.1 mEq/L (3.5-5.2)
[2016-12-23] MEDS: ceFAZolin 2 GM/DEXTROSE 100 ML IV SCH ×3 (03:04→19:17)
[2016-12-23] MEDS: DIAZEPAM 5 MG TAB PO PRN ×3 (04:53→20:45)
[2016-12-23 04:55] LABS: POTASSIUM 4.1 mEq/L (3.5-5.2)
[2016-12-23] MEDS: oxyCODONE IR 5 MG TAB PO PRN ×4 (06:06→19:16)
[2016-12-23] MEDS: METOCLOPRAMIDE 10 MG/2 ML VIAL IVP PRN (06:06)
[2016-12-23] MEDS: SENNOSIDES/DOCUSATE SODIUM TAB PO SCH ×2 (09:02→20:45)
[2016-12-23] MEDS: ENOXAPARIN 30 MG/0.3 ML SYR SC SCH ×2 (09:03→20:45)
[2016-12-23] MEDS: POTASSIUM CL 10 MEQ TAB PO SCH ×2 (09:03→20:45)
[2016-12-23] MEDS: PANTOPRAZOLE SODIUM 40 MG TAB PO SCH (09:03)
[2016-12-23] MEDS: MAGNESIUM HYDROXIDE 30 ML UDCUP PO PRN (10:10)
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
[2016-12-23] MEDS: HYDROmorphONE/DILAUDID 1 MG/ML SYR IVP PRN (17:25)
[2016-12-24] MEDS: ceFAZolin 2 GM/DEXTROSE 100 ML IV SCH (04:25)
[2016-12-24] MEDS: oxyCODONE IR 5 MG TAB PO PRN ×3 (05:49→21:01)
[2016-12-24] MEDS: SENNOSIDES/DOCUSATE SODIUM TAB PO SCH ×2 (08:29→21:04)
[2016-12-24] MEDS: PANTOPRAZOLE SODIUM 40 MG TAB PO SCH (08:29)
[2016-12-24] MEDS: POTASSIUM CL 10 MEQ TAB PO SCH ×2 (08:29→21:03)
[2016-12-24] MEDS: DIAZEPAM 5 MG TAB PO PRN ×2 (08:29→21:03)
[2016-12-24] MEDS: ENOXAPARIN 30 MG/0.3 ML SYR SC SCH ×2 (08:31→21:04)
[2016-12-24] MEDS ORDERED: BISACODYL 10 MG SUPP PR ONE (09:34)
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
[2016-12-24 10:24] LABS: ADD DIFF? YES; ADD MORPH? NO; ADD SCAN? YES; FRAGMENT RBC FLAG 0 (0-99); HEMATOCRIT 29.2 % (40.0-51.0); HEMOGLOBIN 9.8 g/dL (13.7-17.5); LEFT SHIFT FLG 80 (0-99); LIPEMIA HEMOLYSIS FLAG 80 (0-99); MEAN CELL HEMOGLOBIN 28.8 pg (27.9-34.1); MEAN CELL HEMOGLOBIN CONCENTR. 33.6 g/dL (32.4-36.7); MEAN CELL VOLUME 85.9 fL (81.5-99.8); MEAN PLATELET VOLUME 9.7 fL (8.7-11.7); PLATELET CLUMPS FLAG 10 (0-99); PLATELET COUNT 274 10^3/uL (150-400); RED CELL DISTRIBUTION WIDTH 15.3 % (11.5-15.2)
[2016-12-24 10:27] LABS: ATYPICAL LYMPHOCYTE FLAG 100 (0-99)
[2016-12-24] MEDS: METOCLOPRAMIDE 10 MG/2 ML VIAL IVP PRN (10:40)
[2016-12-24 11:11] LABS: HYPOCHROMIA 1+; MICROCYTES 1+; PLATELET ESTIMATE ADEQUATE (ADEQ); POLYCHROMASIA 1+
[2016-12-24] MEDS: IBUPROFEN 600 MG TAB PO PRN (15:48)
[2016-12-25] MEDS: oxyCODONE IR 5 MG TAB PO PRN ×2 (00:57→12:03)
[2016-12-25] MEDS: DIAZEPAM 5 MG TAB PO PRN ×2 (03:38→14:13)
[2016-12-25] MEDS: IBUPROFEN 600 MG TAB PO PRN ×2 (03:39→12:03)
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
[2016-12-25] MEDS: ENOXAPARIN 30 MG/0.3 ML SYR SC SCH ×2 (09:14→22:06)
[2016-12-25] MEDS: SENNOSIDES/DOCUSATE SODIUM TAB PO SCH ×2 (09:14→22:49)
[2016-12-25] MEDS: MAGNESIUM HYDROXIDE 30 ML UDCUP PO PRN (09:14)
[2016-12-25] MEDS: POLYETHYLENE GLYCOL 3350 17 GM PKT PO PRN (09:14)
[2016-12-25] MEDS: PANTOPRAZOLE SODIUM 40 MG TAB PO SCH (09:14)
[2016-12-25] MEDS: POTASSIUM CL 10 MEQ TAB PO SCH ×2 (09:15→22:48)
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
--- NOTE | 2016-12-25 15:33 | CPEKG ---
Heart Rate: 146 RR Interval: 411 P-R Interval: 128 QRSD Interval: 72 QT Interval: 276 QTC Interval: 431 P [place]: 44 QRS [place]: 25 T Wave [place]: -62 EKG Severity - ABNORMAL ECG - EKG Impression: SINUS TACHYCARDIA Electronically Signed By: Joe Villatoro 25-Dec-2016 15:55:17
[2016-12-25 18:14] LABS: ADD DIFF? YES; ADD MORPH? NO; ADD SCAN? NO; ATYPICAL LYMPHOCYTE FLAG 20 (0-99); FRAGMENT RBC FLAG 20 (0-99); HEMATOCRIT 27.5 % (40.0-51.0); HEMOGLOBIN 9.1 g/dL (13.7-17.5); LEFT SHIFT FLG 50 (0-99); LIPEMIA HEMOLYSIS FLAG 80 (0-99); MEAN CELL HEMOGLOBIN 28.2 pg (27.9-34.1); MEAN CELL HEMOGLOBIN CONCENTR. 33.1 g/dL (32.4-36.7); MEAN CELL VOLUME 85.1 fL (81.5-99.8); MEAN PLATELET VOLUME 10.4 fL (8.7-11.7); PLATELET CLUMPS FLAG 0 (0-99); PLATELET COUNT 362 10^3/uL (150-400); RED BLOOD CELL COUNT 3.23 10^6/uL (4.40-6.38); RED CELL DISTRIBUTION WIDTH 15.2 % (11.5-15.2)
[2016-12-25] MEDS: NS 1,000 ML IV SCH (18:19)
[2016-12-25 19:04] LABS: HYPOCHROMIA 1+; PLATELET ESTIMATE ADEQUATE (ADEQ)
[2016-12-25 19:16] LABS: PROCALCITONIN 4.84 ng/mL (0.02-0.10)
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
[2016-12-25 19:27] LABS: ANION GAP 14 mEq/L (8-16); CALCIUM 8.1 mg/dL (8.5-10.4); CARBON DIOXIDE 20 mEq/l (22-31); CHLORIDE 97 mEq/L (97-110); CREATININE 0.6 mg/dL (0.7-1.3); GLOMERULAR FILTRATION RATE > 60; GLUCOSE 99 mg/dL (70-100); POTASSIUM 4.4 mEq/L (3.5-5.2); SODIUM 131 mEq/L (134-144)
[2016-12-25] MEDS ORDERED: ERTAPENEM 1 GM in NS 100 ML IV SCH (19:30)
[2016-12-25 19:40] LABS: TROPONIN I 0.036 ng/mL (0-0.034)
[2016-12-25] MEDS: ONDANSETRON 4 MG/2 ML VIAL IVP PRN (19:45)
[2016-12-25] MEDS ORDERED: IOPAMIDOL (ISOVUE 370) 100 ML BTL IV ONE (20:27)
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
[2016-12-25] MEDS: METOCLOPRAMIDE 10 MG/2 ML VIAL IVP PRN (23:51)
[2016-12-26] MEDS: PIPERACILLIN/TAZO 3.375 GM/DEX 50 ML IV SCH ×5 (01:18→23:42)
[2016-12-26] MEDS: HYDROmorphONE/DILAUDID 1 MG/ML SYR IVP PRN (03:27)
[2016-12-26] MEDS: METOCLOPRAMIDE 10 MG/2 ML VIAL IVP PRN ×3 (05:33→17:50)
[2016-12-26] MEDS: LACTULOSE 20 GM/30 ML UDCUP PO PRN ×2 (08:24→11:47)
[2016-12-26] MEDS: ENOXAPARIN 30 MG/0.3 ML SYR SC SCH ×2 (08:24→20:57)
[2016-12-26] MEDS: POTASSIUM CL 10 MEQ TAB PO SCH ×2 (08:25→20:57)
[2016-12-26] MEDS: PANTOPRAZOLE SODIUM 40 MG TAB PO SCH (08:25)
[2016-12-26] MEDS: SENNOSIDES/DOCUSATE SODIUM TAB PO SCH ×2 (08:25→20:57)
[2016-12-26 09:19] LABS: % IMMATURE GRANULYOCYTES 1.7 % (0.0-1.1); ABSOLUTE IMMATURE GRANULOCYTES 0.24 10^3/uL (0.00-0.10); ADD DIFF? NO; ADD MORPH? NO; ADD SCAN? NO; ATYPICAL LYMPHOCYTE FLAG 30 (0-99); FRAGMENT RBC FLAG 20 (0-99); HEMATOCRIT 26.1 % (40.0-51.0); HEMOGLOBIN 8.4 g/dL (13.7-17.5); LEFT SHIFT FLG 80 (0-99); LIPEMIA HEMOLYSIS FLAG 80 (0-99); MEAN CELL HEMOGLOBIN 28.3 pg (27.9-34.1); MEAN CELL HEMOGLOBIN CONCENTR. 32.2 g/dL (32.4-36.7); MEAN CELL VOLUME 87.9 fL (81.5-99.8); PLATELET CLUMPS FLAG 0 (0-99); PLATELET COUNT 365 10^3/uL (150-400); RED BLOOD CELL COUNT 2.97 10^6/uL (4.40-6.38); RED CELL DISTRIBUTION WIDTH 15.4 % (11.5-15.2)
[2016-12-26 09:40] LABS: AMYLASE 107 IU/L (30-110)
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
[2016-12-26] MEDS: ONDANSETRON 4 MG/2 ML VIAL IVP PRN ×2 (10:19→20:56)
[2016-12-26] MEDS: IBUPROFEN 600 MG TAB PO PRN (12:28)
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
[2016-12-26] MEDS: NS 1,000 ML IV SCH (20:55)
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
[2016-12-27] MEDS: PIPERACILLIN/TAZO 3.375 GM/DEX 50 ML IV SCH ×4 (05:09→23:41)
[2016-12-27] MEDS: METOCLOPRAMIDE 10 MG/2 ML VIAL IVP PRN ×3 (05:10→17:13)
[2016-12-27] MEDS: PANTOPRAZOLE SODIUM 40 MG TAB PO SCH (08:45)
[2016-12-27] MEDS: POTASSIUM CL 10 MEQ TAB PO SCH ×2 (08:45→20:14)
[2016-12-27] MEDS: ENOXAPARIN 30 MG/0.3 ML SYR SC SCH ×2 (08:45→20:14)
[2016-12-27] MEDS: SENNOSIDES/DOCUSATE SODIUM TAB PO SCH ×2 (08:45→20:14)
[2016-12-27] MEDS: ONDANSETRON 4 MG/2 ML VIAL IVP PRN (08:46)
[2016-12-27] MEDS: IBUPROFEN 600 MG TAB PO PRN (08:50)
[2016-12-27] MEDS: LACTULOSE 20 GM/30 ML UDCUP PO PRN (11:14)
[2016-12-27] MEDS: oxyCODONE IR 5 MG TAB PO PRN (13:18)
[2016-12-27] MEDS ORDERED: METHYLNALTREXONE BROMIDE 12 MG/0.6 ML INJ SC ONE (14:32)
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
[2016-12-27] MEDS: BISACODYL 10 MG SUPP PR SCH (17:03)
[2016-12-27] MEDS: NS 1,000 ML IV SCH (20:18)
[2016-12-28] MEDS: IBUPROFEN 600 MG TAB PO PRN (05:12)
[2016-12-28] MEDS: PIPERACILLIN/TAZO 3.375 GM/DEX 50 ML IV SCH ×3 (05:13→18:19)
[2016-12-28] MEDS: METOCLOPRAMIDE 10 MG/2 ML VIAL IVP PRN (05:13)
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
[2016-12-28] MEDS: BISACODYL 10 MG SUPP PR SCH (09:17)
[2016-12-28] MEDS: PANTOPRAZOLE SODIUM 40 MG TAB PO SCH (09:18)
[2016-12-28] MEDS: ENOXAPARIN 30 MG/0.3 ML SYR SC SCH ×2 (09:18→20:34)
[2016-12-28] MEDS: POTASSIUM CL 10 MEQ TAB PO SCH ×2 (09:18→20:33)
[2016-12-28] MEDS: SENNOSIDES/DOCUSATE SODIUM TAB PO SCH ×2 (09:18→20:34)
[2016-12-28] MEDS: NS 1,000 ML IV SCH ×2 (09:27→18:25)
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
[2016-12-29] MEDS: PIPERACILLIN/TAZO 3.375 GM/DEX 50 ML IV SCH ×4 (00:42→17:46)
[2016-12-29] MEDS: NS 1,000 ML IV SCH (06:00)
[2016-12-29] MEDS: PANTOPRAZOLE SODIUM 40 MG TAB PO SCH (07:59)
[2016-12-29] MEDS: SENNOSIDES/DOCUSATE SODIUM TAB PO SCH ×2 (07:59→20:23)
[2016-12-29] MEDS: BISACODYL 10 MG SUPP PR SCH (07:59)
[2016-12-29] MEDS: POTASSIUM CL 10 MEQ TAB PO SCH ×2 (07:59→20:22)
[2016-12-29] MEDS: ENOXAPARIN 30 MG/0.3 ML SYR SC SCH ×2 (08:00→20:24)
[2016-12-29] MEDS ORDERED: HYDROmorphONE/DILAUDID 1 MG/ML SYR IVP PRN (08:44)
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
[2016-12-29] MEDS: ONDANSETRON 4 MG/2 ML VIAL IVP PRN (16:10)
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
[2016-12-30] MEDS: PIPERACILLIN/TAZO 3.375 GM/DEX 50 ML IV SCH ×4 (00:53→18:06)
[2016-12-30] MEDS: NS 1,000 ML IV SCH (07:50)
[2016-12-30] MEDS: ENOXAPARIN 30 MG/0.3 ML SYR SC SCH ×2 (07:51→20:43)
[2016-12-30] MEDS: SENNOSIDES/DOCUSATE SODIUM TAB PO SCH ×2 (07:52→20:44)
[2016-12-30] MEDS: POTASSIUM CL 10 MEQ TAB PO SCH ×2 (07:52→20:44)
[2016-12-30] MEDS: BISACODYL 10 MG SUPP PR SCH ×2 (07:52→08:05)
[2016-12-30] MEDS: PANTOPRAZOLE SODIUM 40 MG TAB PO SCH (07:52)
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
[2016-12-30] MEDS: TAMSULOSIN HCL 0.4 MG CAP PO SCH (12:10)
[2016-12-30] MEDS: oxyCODONE IR 5 MG TAB PO PRN ×2 (18:13→20:46)
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
[2016-12-30] MEDS: DIAZEPAM 5 MG TAB PO PRN (20:45)
[2016-12-31] MEDS: PIPERACILLIN/TAZO 3.375 GM/DEX 50 ML IV SCH ×3 (00:34→12:54)
[2016-12-31] MEDS: oxyCODONE IR 5 MG TAB PO PRN ×2 (05:43→20:01)
[2016-12-31] MEDS: TAMSULOSIN HCL 0.4 MG CAP PO SCH (08:53)
[2016-12-31] MEDS: PANTOPRAZOLE SODIUM 40 MG TAB PO SCH (08:53)
[2016-12-31] MEDS: SENNOSIDES/DOCUSATE SODIUM TAB PO SCH ×2 (08:53→20:01)
[2016-12-31] MEDS: LACTULOSE 20 GM/30 ML UDCUP PO PRN (08:53)
[2016-12-31] MEDS: POTASSIUM CL 10 MEQ TAB PO SCH ×2 (08:53→20:00)
[2016-12-31] MEDS: ENOXAPARIN 30 MG/0.3 ML SYR SC SCH ×2 (08:53→20:00)
[2016-12-31] MEDS: BISACODYL 10 MG SUPP PR SCH (08:54)
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
[2016-12-31] MEDS: DIAZEPAM 5 MG TAB PO PRN (20:00)
[2017-01-01 05:02] LABS: ADD DIFF? YES; ADD MORPH? NO; ADD SCAN? NO; ATYPICAL LYMPHOCYTE FLAG 50 (0-99); FRAGMENT RBC FLAG 0 (0-99); HEMATOCRIT 29.4 % (40.0-51.0); HEMOGLOBIN 9.5 g/dL (13.7-17.5); LEFT SHIFT FLG 20 (0-99); LIPEMIA HEMOLYSIS FLAG 80 (0-99); MEAN CELL HEMOGLOBIN 28.4 pg (27.9-34.1); MEAN CELL HEMOGLOBIN CONCENTR. 32.3 g/dL (32.4-36.7); PLATELET CLUMPS FLAG 0 (0-99); PLATELET COUNT 339 10^3/uL (150-400); RED BLOOD CELL COUNT 3.34 10^6/uL (4.40-6.38); RED CELL DISTRIBUTION WIDTH 15.8 % (11.5-15.2)
[2017-01-01 05:15] LABS: ANION GAP 10 mEq/L (8-16); CALCIUM 8.7 mg/dL (8.5-10.4); CARBON DIOXIDE 23 mEq/l (22-31); CHLORIDE 102 mEq/L (97-110); CREATININE 0.7 mg/dL (0.7-1.3); GLOMERULAR FILTRATION RATE > 60; GLUCOSE 91 mg/dL (70-100); MAGNESIUM 1.9 mg/dL (1.6-2.3); POTASSIUM 4.7 mEq/L (3.5-5.2); SODIUM 135 mEq/L (134-144)
[2017-01-01 05:43] LABS: PLATELET ESTIMATE ADEQUATE (ADEQ); POLYCHROMASIA 1+
[2017-01-01 07:32] VITALS: RESP 16; TEMP 97.7
--- NOTE | 2017-01-01 08:38 | PDIAF ---
- Diagnosis Code Status: Full Code - Medication Management Discharge Medications: Medications to Continue on Transfer Diazepam [Valium 5 MG (*)] 5 - 10 mg PO Q4 PRN #0 tab 01/01/17 [Last Taken Unknown] Enoxaparin [Lovenox] 30 mg SC BID #0 syr 01/01/17 [Last Taken Unknown] HYDROmorphone HCL [Dilaudid] 0.4 mg IVP Q2HRS PRN #0 syr 01/01/17 [Last Taken Unknown] Ibuprofen [Motrin (*)] 600 mg PO Q6HRS PRN #0 tab 01/01/17 [Last Taken Unknown] Ondansetron HCl Pf [Zofran 4 mg Inj (*)] 4 mg IVP Q4HRS PRN #0 vial 01/01/17 [ Last Taken Unknown] Pantoprazole Sodium [Protonix 40mg (*)] 40 mg PO DAILY #0 tab 01/01/17 [Last Taken Unknown] Polyethylene Glycol 3350 [Miralax 17 gm (*)] 17 gm PO DAILY PRN #0 pkt 01/01/17 [Last Taken Unknown] Potassium Cl [Klor-Con 10 meq (RX)] 10 meq PO BID #0 tab 01/01/17 [Last Taken Unknown] Sennosides/Docusate Sodium [Senokot-S] 2 tab PO BID #0 tab 01/01/17 [Last Taken Unknown] Tamsulosin HCl [Flomax 0.4 MG (*)] 0.4 mg PO DAILY #0 cap 01/01/17 [Last Taken Unknown] oxyCODONE CR [Oxycontin] 20 mg PO BID #0 tab 01/01/17 [Last Taken Unknown] oxyCODONE IR [Oxycodone Ir (*)] 10 mg PO Q4HRS PRN #0 tab 01/01/17 [Last Taken Unknown] Discharge Medications: Refer to the Discharge Home Medication list for PRN reason. - Orders Services needed: Registered Nurse, Physical Therapy, Occupational Therapy Oxygen: As needed to keep sats over Diet Recommendation: no restrictions on diet Diet Texture: Regular Texture Diet, Thin Liquids, Meds Whole w/Liquids Anand: Yes (Flomax started 12/30 likely will be able to do a voiding trial in 24 hours) Sutures/Magdy Site: Will discuss with Dr. Cleaning for either suture removal prior to discharge or at a time as needed by his management plan. Activity/Weight Bearing Restrictions: Nonweightbearing until January 25 right lower extremity. Weightbearing as tolerated all other extremities Equipment: Platform walker - Follow Up Care Current Providers and Referrals: Patient,NotPresent [Unknown] - As per Instructions Jamil Cleaning MD [Medical Doctor] - Josef Marcos MD [Medical Doctor] -
[2017-01-01] MEDS: IBUPROFEN 600 MG TAB PO PRN (09:24)
[2017-01-01] MEDS: TAMSULOSIN HCL 0.4 MG CAP PO SCH (09:24)
[2017-01-01] MEDS: SENNOSIDES/DOCUSATE SODIUM TAB PO SCH (09:25)
[2017-01-01] MEDS: ENOXAPARIN 30 MG/0.3 ML SYR SC SCH (09:25)
[2017-01-01] MEDS: PANTOPRAZOLE SODIUM 40 MG TAB PO SCH (09:25)
[2017-01-01] MEDS: POTASSIUM CL 10 MEQ TAB PO SCH (09:25)
[2017-01-01] MEDS: BISACODYL 10 MG SUPP PR SCH (09:51)
[2017-01-01 11:27] VITALS: BP 109/77; PULSE 120; O2SAT 94
== END 2017-01-01 14:33 | DRG 956 ==
LOC: EDUNIT# → F2N 19:07 → F3N 12-21 13:52
PROVIDERS: ADMIT Surgery; ATTEND Surgery
PROC: 0B9 Respiratory System, Drainage (ICD-10-PCS; 2016-12-15)
PROC: 05H533Z Insertion of Infusion Device into Right Subclavian Vein, Percutaneous Approach (ICD-10-PCS; 2016-12-15)
PROC: 0W993ZZ Drainage of Right Pleural Cavity, Percutaneous Approach (ICD-10-PCS; 2016-12-15)
PROC: 0BH17EZ Insertion of Endotracheal Airway into Trachea, Via Natural or Artificial Opening (ICD-10-PCS; 2016-12-15)
PROC: 06HM33Z Insertion of Infusion Device into Right Femoral Vein, Percutaneous Approach (ICD-10-PCS; 2016-12-15)
PROC: 5A2204Z Restoration of Cardiac Rhythm, Single (ICD-10-PCS; 2016-12-15)
PROC: 2W3NX1Z Immobilization of Right Upper Leg using Splint (ICD-10-PCS; 2016-12-15)
PROC: 3E0437Z Introduction of Electrolytic and Water Balance Substance into Central Vein, Percutaneous Approach (ICD-10-PCS; 2016-12-15)
PROC: 30233N1 Transfusion of Nonautologous Red Blood Cells into Peripheral Vein, Percutaneous Approach (ICD-10-PCS; 2016-12-15)
PROC: 5A1935Z Respiratory Ventilation, Less than 24 Consecutive Hours (ICD-10-PCS; 2016-12-15)
PROC: 0BH17EZ Insertion of Endotracheal Airway into Trachea, Via Natural or Artificial Opening (ICD-10-PCS; 2016-12-15)
PROC: 0QS804Z Reposition Right Femoral Shaft with Internal Fixation Device, Open Approach (ICD-10-PCS; principal; 2016-12-16 10:30)
PROC: 0QS606Z Reposition Right Upper Femur with Intramedullary Internal Fixation Device, Open Approach (ICD-10-PCS; principal; 2016-12-16 10:30)
DX: S06.6X9A Traumatic subarachnoid hemorrhage with loss of consciousness of unspecified duration, initial encounter (principal); S72.351B Displaced comminuted fracture of shaft of right femur, initial encounter for open fracture type I or II; S72.051A Unspecified fracture of head of right femur, initial encounter for closed fracture; J18.9 Pneumonia, unspecified organism; J96.00 Acute respiratory failure, unspecified whether with hypoxia or hypercapnia; R57.9 Shock, unspecified; S22.41XA Multiple fractures of ribs, right side, initial encounter for closed fracture; S27.0XXA Traumatic pneumothorax, initial encounter; T79.7XXA Traumatic subcutaneous emphysema, initial encounter; S27.329A Contusion of lung, unspecified, initial encounter; S93.122A Dislocation of metatarsophalangeal joint of left great toe, initial encounter; S51.011A Laceration without foreign body of right elbow, initial encounter; S31.134A Puncture wound of abdominal wall without foreign body, left lower quadrant without penetration into peritoneal cavity, initial encounter; S82.832A Other fracture of upper and lower end of left fibula, initial encounter for closed fracture; S51.832A Puncture wound without foreign body of left forearm, initial encounter; V43.54XA Car driver injured in collision with van in traffic accident, initial encounter; Y92.410 Unspecified street and highway as the place of occurrence of the external cause; J90 Pleural effusion, not elsewhere classified; I48.91 Unspecified atrial fibrillation; K59.00 Constipation, unspecified; H53.2 Diplopia; R33.9 Retention of urine, unspecified; E86.9 Volume depletion, unspecified; J93.0 Spontaneous tension pneumothorax; I95.9 Hypotension, unspecified; R00.0 Tachycardia, unspecified; G47.00 Insomnia, unspecified; D50.0 Iron deficiency anemia secondary to blood loss (chronic); K56.0 Paralytic ileus; J98.11 Atelectasis; K21.0 Gastro-esophageal reflux disease with esophagitis; Z87.442 Personal history of urinary calculi; Z23 Encounter for immunization
CPT/HCPCS: 80307; 82947-QW; 92507-GN; 92523-GN; 92526-GN; 92610-GN; 96374; 97116-GP; 97161-GP; 97166-GO; 97530-GO; 97530-GP; 97535-GO; C1713; C1769; G0480; G8987-GO-CL; G8988-GO-CJ; J0153; J0330; J0690; J1170; J1650; J2212; J2250; J2370; J2405; J2543; J2704; J2765; J3010; J3490; L0172; P9016; P9017; P9021; P9035; Q9967

== ENCOUNTER 2017-01-01 14:57 | Inpatient (IN) | payer OTHER ==
[2017-01-01] MEDS ORDERED: DIAZEPAM 5 MG TAB PO PRN (16:30)
[2017-01-01] MEDS ORDERED: oxyCODONE IR 5 MG TAB PO PRN (16:30)
[2017-01-01] MEDS ORDERED: POLYETHYLENE GLYCOL 3350 17 GM PKT PO PRN (16:30)
[2017-01-01] MEDS ORDERED: ONDANSETRON DISINTEGRATING 4 MG TAB PO PRN (16:35)
[2017-01-01] MEDS ORDERED: BISACODYL 10 MG SUPP PR PRN (16:35)
--- NOTE | 2017-01-01 16:42 | PDOREHIP ---
Admission [facility] - Admission - 3 Day Assessment Period Admission Date/Day 1: 01/01/17 Day 2: 01/02/17 Day 3: 01/03/17 - Active Diagnoses Comorbidities and Co-existing Conditions at Admission: 28159. None of the Above - Skin Conditions Unhealed Pressure Ulcer (1 or more/Stage 1 or >)-Admission: 0. No
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
[2017-01-01] MEDS: IBUPROFEN 600 MG TAB PO PRN (19:38)
[2017-01-01] MEDS: ENOXAPARIN 30 MG/0.3 ML SYR SC SCH (20:54)
[2017-01-01] MEDS: SENNOSIDES/DOCUSATE SODIUM TAB PO SCH (20:54)
[2017-01-02] MEDS: TAMSULOSIN HCL 0.4 MG CAP PO SCH (08:37)
[2017-01-02] MEDS: SENNOSIDES/DOCUSATE SODIUM TAB PO SCH ×2 (08:37→20:29)
[2017-01-02] MEDS: ENOXAPARIN 30 MG/0.3 ML SYR SC SCH ×2 (08:38→20:30)
[2017-01-02] MEDS: PANTOPRAZOLE SODIUM 40 MG TAB PO SCH (08:38)
[2017-01-02] MEDS: IBUPROFEN 600 MG TAB PO PRN (10:17)
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
[2017-01-02] MEDS ORDERED: IOPAMIDOL (ISOVUE-300) 100 ML BTL ONE (16:36)
[2017-01-03] MEDS: IBUPROFEN 600 MG TAB PO PRN (07:13)
[2017-01-03] MEDS: SENNOSIDES/DOCUSATE SODIUM TAB PO SCH ×2 (09:33→20:36)
[2017-01-03] MEDS: PANTOPRAZOLE SODIUM 40 MG TAB PO SCH (09:34)
[2017-01-03] MEDS: TAMSULOSIN HCL 0.4 MG CAP PO SCH (09:34)
[2017-01-03] MEDS: ENOXAPARIN 30 MG/0.3 ML SYR SC SCH ×2 (09:34→20:36)
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
[2017-01-04] MEDS: PANTOPRAZOLE SODIUM 40 MG TAB PO SCH (08:28)
[2017-01-04] MEDS: TAMSULOSIN HCL 0.4 MG CAP PO SCH (08:28)
[2017-01-04] MEDS: SENNOSIDES/DOCUSATE SODIUM TAB PO SCH ×2 (08:29→19:30)
[2017-01-04] MEDS: ENOXAPARIN 30 MG/0.3 ML SYR SC SCH ×2 (08:31→22:00)
[2017-01-04] MEDS: IBUPROFEN 600 MG TAB PO PRN (12:48)
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
[2017-01-04] MEDS ORDERED: POLYETHYLENE GLYCOL 3350 17 GM PKT ONE (19:07)
[2017-01-04] MEDS: POLYETHYLENE GLYCOL 3350 17 GM PKT PO SCH (19:09)
[2017-01-05] MEDS: POLYETHYLENE GLYCOL 3350 17 GM PKT PO SCH (08:12)
[2017-01-05] MEDS: PANTOPRAZOLE SODIUM 40 MG TAB PO SCH (08:12)
[2017-01-05] MEDS: TAMSULOSIN HCL 0.4 MG CAP PO SCH (08:13)
[2017-01-05] MEDS: ENOXAPARIN 30 MG/0.3 ML SYR SC SCH ×2 (08:13→20:57)
[2017-01-05] MEDS: SENNOSIDES/DOCUSATE SODIUM TAB PO SCH ×2 (08:14→20:55)
[2017-01-05] MEDS ORDERED: MAGNESIUM HYDROXIDE 30 ML UDCUP PO PRN (09:23)
--- NOTE | 2017-01-05 09:51 | WOCRNPDOC ---
[facility] Advanced Assessment Note - Skin Integrity Problem, Advanced Assess Right Lateral Thigh Surgical Wound/Incision Dressing Type: LeukoMed with Pads (Incisional) Dressing Description: Clean/Dry, Intact Closure Description: Steri Strips, Approximated Exudate Amount: Scant Exudate Color: Reddish/Yellow Exudate Characteristic(s): Serosanguinous Integumentary Issue Intervention: Dressing Changed Faye Wound Tissue: Intact Faye Wound Swelling: None Wound Edges: Epithelizing Site Measurement - Head-to-Toe Length X Width X Depth (cm): [id number] Skin Integrity Problem Comment: Well-approximated incision noted along R lateral thigh. [place] removed a few days ago, and steri-strips were placed along proximal aspect of incision at that time. Presently, there is scant exudate on the dressing, no erythema or swelling noted, and there is epithelialization throughout incision line. Leukomed incisional dressing replaced today, but this can be dc'd in a few days if no additional exudate is observed. labor representative Tali present and assisting. Right Lower Buttock Unknown Dressing Type: Allevyn Life Dressing Description: Clean/Dry, Intact Exudate Amount: Scant Exudate Characteristic(s): Serosanguinous Integumentary Issue Intervention: Dressing Changed Wound Bed Color: Brown, Red Wound Bed Constitution: Granulation Tissue, Draining Serous Blister (no longer draining, overlying epithelium re-adhering) Skin Integrity Problem Comment: Two discrete blisters noted w/ differing characteristics. Proximally, there is a flat, drained blister w/ the overlying epithelium re-adhering. No fluctuance or exudate observed. Distally, there is a linear, de-roofed blister w/ a granulating wound bed. As both sites are near patient's R ischium, there was some concern expressed by his nurse that these might be pressure-related injuries. While I do not know exact etiology of these wounds, their location and appearance is not concerning for pressure; these blisters are likely the result of surgical drape or some other adhesive that applied tension to the epithelium. New Allevyn dressing applied, and wound care will continue to monitor. Left Knee Surgical Wound/Incision Dressing Type: Allevyn Life Dressing Description: Intact Closure Description: Not Approximated Exudate Amount: Scant Exudate Color: Reddish/Yellow Exudate Characteristic(s): Serosanguinous Integumentary Issue Intervention: Dressing Changed, Dressing Initialed & Dated, Hydrogel Applied, Mechanical Debridement (loose slough removed w/ NS, gauze, and forceps.) Faye Wound Tissue: Swollen Faye Wound Swelling: Mild Wound Bed Color: Red Wound Bed Constitution: Granulation Tissue, Loose Slough (removed) Wound Edges: Epithelizing Site Odor: None Skin Integrity Problem Comment: Small open area noted along incision on L medial knee. Wound was both scabbed and slough-filled when existing dressing removed. These were easily removed w/ gauze, NS, and forceps, revealing a granulating wound bed underneath. Pea-sized amount of Hydrogel applied, followed by piece of Puracol Ag collagen. Site re-dressed w/ Allevyn Life. Faye- wound tissues remain mildly edematous, but there is no erythema or warmth noted. Patient tolerated dressing change and superficial debridement w/out complaint of pain. labor representative Tali present and assisting. Wound RN will continue to monitor, rounding next on Friday 01/12. Left Lower Abdomen Dressing Type: Allevyn Life Dressing Description: Clean/Dry, Intact Exudate Amount: Scant Exudate Color: Reddish/Yellow Exudate Characteristic(s): Serosanguinous Integumentary Issue Intervention: Dressing Changed, Dressing Initialed & Dated, Silver Gel Applied, Mechanical Debridement (NS and gauze) Faye Wound Tissue: Indurated (r/t suspected lymphocele), Intact Faye Wound Swelling: Moderate Wound Edges: Well Defined Site Odor: None Skin Integrity Problem Comment: Small, linear, slough and scab-filled wound noted. Some of the slough was easily removed during cleansing of site. Presentation of wound is shallow, and it is likely this will debride autolytically w/ continued moist wound healing conditions. Silvasorb gel and Allevyn applied. Faye-wound tissues remain indurated r/t suspected lymphocele; there is no accompanying erythema, warmth, or reported pain. Wound care will continue to monitor, rounding again on Friday 01/12. Right Hip Surgical Wound/Incision Dressing Type: LeukoMed with Pads Dressing Description: Clean/Dry, Intact Closure Description: [place], Approximated Exudate Amount: Scant Exudate Color: Reddish/Yellow Exudate Characteristic(s): Serosanguinous Integumentary Issue Intervention: Dressing Changed, Dressing Initialed & Dated, [place] Removed Faye Wound Tissue: Intact Faye Wound Swelling: None Wound Edges: Epithelizing Site Measurement - Head-to-Toe Length X Width X Depth (cm): [id number] Skin Integrity Problem Comment: Well-approximated incision w/ 6, intact magdy noted over R hip. [place] removed, and site is epithelializing. There is no accompanying swelling or erythema in surrounding tissues. Site cleansed, and new Leukomed dressing was placed to manage any residual exudate from staple removal. Instructions given to labor representative Tali (and in written order) to DC this dressing once there is no further exudate noted.
[2017-01-05] MEDS: IBUPROFEN 600 MG TAB PO PRN (09:55)
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
[2017-01-06] MEDS: SENNOSIDES/DOCUSATE SODIUM TAB PO SCH ×2 (08:15→22:56)
[2017-01-06] MEDS: TAMSULOSIN HCL 0.4 MG CAP PO SCH (08:15)
[2017-01-06] MEDS: ENOXAPARIN 30 MG/0.3 ML SYR SC SCH ×2 (08:15→22:54)
[2017-01-06] MEDS: PANTOPRAZOLE SODIUM 40 MG TAB PO SCH (08:15)
[2017-01-06] MEDS: POLYETHYLENE GLYCOL 3350 17 GM PKT PO SCH (08:16)
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
[2017-01-06] MEDS: traMADol 50 MG TAB PO SCH ×3 (12:07→22:55)
[2017-01-06] MEDS ORDERED: LIDOCAINE 5% 1 EA PATCH TD SCH (22:30)
[2017-01-06] MEDS: IPRATROPIUM/ALBUTEROL 3 ML DEYVIAL IH PRN (22:59)
[2017-01-06] MEDS: IBUPROFEN 600 MG TAB PO PRN (23:56)
[2017-01-07] MEDS ORDERED: ENOXAPARIN 80 MG/0.8 ML SYR SC ONE (01:00)
[2017-01-07] MEDS: traMADol 50 MG TAB PO SCH ×4 (05:40→23:12)
[2017-01-07] MEDS: SENNOSIDES/DOCUSATE SODIUM TAB PO SCH ×2 (08:36→21:36)
[2017-01-07] MEDS: TAMSULOSIN HCL 0.4 MG CAP PO SCH (08:36)
[2017-01-07] MEDS: PANTOPRAZOLE SODIUM 40 MG TAB PO SCH (08:36)
[2017-01-07] MEDS: PATCH REMOVAL 1 EA PATCH TD SCH (08:40)
[2017-01-07] MEDS: LIDOCAINE 5% 1 EA PATCH TD SCH (08:40)
[2017-01-07] MEDS: POLYETHYLENE GLYCOL 3350 17 GM PKT PO SCH (08:40)
[2017-01-07 08:52] LABS: % IMMATURE GRANULYOCYTES 1.2 % (0.0-1.1); ABSOLUTE IMMATURE GRANULOCYTES 0.04 10^3/uL (0.00-0.10); ADD DIFF? NO; ADD MORPH? NO; ADD SCAN? NO; ATYPICAL LYMPHOCYTE FLAG 20 (0-99); FRAGMENT RBC FLAG 20 (0-99); HEMATOCRIT 26.9 % (40.0-51.0); HEMOGLOBIN 8.6 g/dL (13.7-17.5); LEFT SHIFT FLG 10 (0-99); LIPEMIA HEMOLYSIS FLAG 80 (0-99); MEAN CELL HEMOGLOBIN 28.1 pg (27.9-34.1); MEAN CELL VOLUME 87.9 fL (81.5-99.8); MEAN PLATELET VOLUME 10.7 fL (8.7-11.7); PLATELET CLUMPS FLAG 0 (0-99); PLATELET COUNT 262 10^3/uL (150-400); RED BLOOD CELL COUNT 3.06 10^6/uL (4.40-6.38); RED CELL DISTRIBUTION WIDTH 15.9 % (11.5-15.2)
[2017-01-07 09:05] LABS: ANION GAP 10 mEq/L (8-16); CALCIUM 8.5 mg/dL (8.5-10.4); CARBON DIOXIDE 23 mEq/l (22-31); CHLORIDE 98 mEq/L (97-110); CREATININE 0.6 mg/dL (0.7-1.3); GLOMERULAR FILTRATION RATE > 60; GLUCOSE 78 mg/dL (70-100); SODIUM 131 mEq/L (134-144)
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
[2017-01-07 11:07] LABS: INR 1.05 (0.83-1.16); PROTIME(PATIENT) 13.6 SEC (12.0-15.0)
[2017-01-07] MEDS: ENOXAPARIN 100 MG/ML SYR SC SCH ×2 (11:18→21:41)
[2017-01-07 11:45] LABS: ALKALINE PHOSPHATASE 184 IU/L (38-126)
[2017-01-07 14:50] LABS: COLOR YELLOW; LEUKOCYTE ESTERASE,URINE NEGATIVE (NEGATIVE); NITRITE,URINE NEGATIVE (NEGATIVE)
[2017-01-07 14:56] LABS: BACTERIA TRACE /hpf (NONE SEEN); MUCUS 1+ /lpf (NONE-1+); RBC,URINE 50-182 /hpf (0-3)
[2017-01-07 20:27] LABS: % IMMATURE GRANULYOCYTES 0.9 % (0.0-1.1); ABSOLUTE IMMATURE GRANULOCYTES 0.05 10^3/uL (0.00-0.10); ADD DIFF? NO; ADD MORPH? NO; ADD SCAN? NO; ATYPICAL LYMPHOCYTE FLAG 20 (0-99); FRAGMENT RBC FLAG 0 (0-99); HEMATOCRIT 27.7 % (40.0-51.0); HEMOGLOBIN 8.9 g/dL (13.7-17.5); LEFT SHIFT FLG 0 (0-99); LIPEMIA HEMOLYSIS FLAG 80 (0-99); MEAN CELL HEMOGLOBIN 27.6 pg (27.9-34.1); MEAN CELL HEMOGLOBIN CONCENTR. 32.1 g/dL (32.4-36.7); MEAN CELL VOLUME 85.8 fL (81.5-99.8); MEAN PLATELET VOLUME 10.4 fL (8.7-11.7); PLATELET CLUMPS FLAG 0 (0-99); PLATELET COUNT 268 10^3/uL (150-400); RED BLOOD CELL COUNT 3.23 10^6/uL (4.40-6.38); RED CELL DISTRIBUTION WIDTH 15.4 % (11.5-15.2)
[2017-01-07] MEDS: IPRATROPIUM/ALBUTEROL 3 ML DEYVIAL IH PRN (21:36)
[2017-01-07] MEDS: IBUPROFEN 600 MG TAB PO PRN (21:41)
[2017-01-08] MEDS: traMADol 50 MG TAB PO SCH ×3 (06:57→18:08)
[2017-01-08] MEDS: PATCH REMOVAL 1 EA PATCH TD SCH (07:18)
[2017-01-08] MEDS: POLYETHYLENE GLYCOL 3350 17 GM PKT PO SCH (08:14)
[2017-01-08] MEDS: TAMSULOSIN HCL 0.4 MG CAP PO SCH (08:14)
[2017-01-08] MEDS: PANTOPRAZOLE SODIUM 40 MG TAB PO SCH (08:15)
[2017-01-08] MEDS: SENNOSIDES/DOCUSATE SODIUM TAB PO SCH ×2 (08:15→20:46)
[2017-01-08] MEDS: ENOXAPARIN 100 MG/ML SYR SC SCH ×2 (08:15→19:56)
[2017-01-08] MEDS: LIDOCAINE 5% 1 EA PATCH TD SCH (08:16)
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
[2017-01-08] MEDS ORDERED: traMADol 50 MG TAB PO PRN (12:34)
[2017-01-08] MEDS: IPRATROPIUM/ALBUTEROL 3 ML DEYVIAL IH PRN (19:55)
[2017-01-08] MEDS: IBUPROFEN 600 MG TAB PO PRN (19:55)
[2017-01-08] MEDS ORDERED: IOPAMIDOL (ISOVUE 370) 100 ML BTL IV ONE ×2 (20:40→21:06)
[2017-01-08 21:03] LABS: % IMMATURE GRANULYOCYTES 1.1 % (0.0-1.1); ABSOLUTE IMMATURE GRANULOCYTES 0.05 10^3/uL (0.00-0.10); ADD DIFF? NO; ADD MORPH? NO; ADD SCAN? NO; ATYPICAL LYMPHOCYTE FLAG 30 (0-99); FRAGMENT RBC FLAG 50 (0-99); HEMATOCRIT 27.2 % (40.0-51.0); HEMOGLOBIN 8.9 g/dL (13.7-17.5); LEFT SHIFT FLG 10 (0-99); LIPEMIA HEMOLYSIS FLAG 80 (0-99); MEAN CELL HEMOGLOBIN 27.9 pg (27.9-34.1); MEAN CELL HEMOGLOBIN CONCENTR. 32.7 g/dL (32.4-36.7); MEAN CELL VOLUME 85.3 fL (81.5-99.8); PLATELET CLUMPS FLAG 10 (0-99); PLATELET COUNT 279 10^3/uL (150-400); RED BLOOD CELL COUNT 3.19 10^6/uL (4.40-6.38); RED CELL DISTRIBUTION WIDTH 15.4 % (11.5-15.2)
[2017-01-08 21:34] LABS: ANION GAP 12 mEq/L (8-16); CALCIUM 8.3 mg/dL (8.5-10.4); CARBON DIOXIDE 19 mEq/l (22-31); CHLORIDE 95 mEq/L (97-110); CREATININE 0.6 mg/dL (0.7-1.3); GLOMERULAR FILTRATION RATE > 60; GLUCOSE 101 mg/dL (70-100); POTASSIUM 3.9 mEq/L (3.5-5.2); SODIUM 126 mEq/L (134-144)
[2017-01-08 21:36] LABS: PROCALCITONIN 0.19 ng/mL (0.02-0.10)
[2017-01-08 23:16] LABS: URIC ACID 2.9 mg/dL (3.5-8.5)
[2017-01-09] MEDS: PATCH REMOVAL 1 EA PATCH TD SCH ×2 (05:34→21:05)
[2017-01-09] MEDS: traMADol 50 MG TAB PO SCH ×2 (06:38→12:22)
[2017-01-09] MEDS: IPRATROPIUM/ALBUTEROL 3 ML DEYVIAL IH PRN (06:39)
[2017-01-09] MEDS: PANTOPRAZOLE SODIUM 40 MG TAB PO SCH (08:15)
[2017-01-09] MEDS: ENOXAPARIN 100 MG/ML SYR SC SCH ×3 (08:15→21:04)
[2017-01-09] MEDS: TAMSULOSIN HCL 0.4 MG CAP PO SCH (08:15)
[2017-01-09] MEDS: LIDOCAINE 5% 1 EA PATCH TD SCH (08:15)
[2017-01-09] MEDS: POLYETHYLENE GLYCOL 3350 17 GM PKT PO SCH (08:18)
[2017-01-09] MEDS: SENNOSIDES/DOCUSATE SODIUM TAB PO SCH ×2 (08:18→21:04)
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
[2017-01-09] MEDS ORDERED: ACETAMINOPHEN 325 MG TAB PO PRN (13:44)
[2017-01-09] MEDS ORDERED: traMADol 50 MG TAB PO PRN (15:10)
[2017-01-09] MEDS ORDERED: PREPARATION H 51 GM CRTUBE PR PRN (15:58)
[2017-01-09] MEDS: ACETAMINOPHEN 325 MG TAB PO SCH ×2 (17:04→23:09)
[2017-01-10] MEDS: ACETAMINOPHEN 325 MG TAB PO SCH ×4 (06:30→23:41)
[2017-01-10 09:01] LABS: ANION GAP 12 mEq/L (8-16); CALCIUM 8.3 mg/dL (8.5-10.4); CARBON DIOXIDE 22 mEq/l (22-31); CHLORIDE 100 mEq/L (97-110); CREATININE 0.6 mg/dL (0.7-1.3); GLOMERULAR FILTRATION RATE > 60; GLUCOSE 81 mg/dL (70-100); POTASSIUM 3.7 mEq/L (3.5-5.2); SODIUM 134 mEq/L (134-144)
[2017-01-10 09:18] LABS: FOLLICLE STIMULATING HORMONE 2.64 mIU/mL (1.55-9.74)
[2017-01-10] MEDS: IBUPROFEN 600 MG TAB PO PRN (09:48)
[2017-01-10] MEDS: LIDOCAINE 5% 1 EA PATCH TD SCH (09:49)
[2017-01-10] MEDS: TAMSULOSIN HCL 0.4 MG CAP PO SCH (09:50)
[2017-01-10] MEDS: POLYETHYLENE GLYCOL 3350 17 GM PKT PO SCH (09:51)
[2017-01-10] MEDS: PANTOPRAZOLE SODIUM 40 MG TAB PO SCH (09:51)
[2017-01-10] MEDS: SENNOSIDES/DOCUSATE SODIUM TAB PO SCH ×2 (09:51→20:35)
[2017-01-10] MEDS: ENOXAPARIN 30 MG/0.3 ML SYR SC SCH ×2 (11:06→20:35)
[2017-01-10] MEDS: ENOXAPARIN 100 MG/ML SYR SC SCH (12:40)
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
--- NOTE | 2017-01-10 20:09 | WOCRNPDOC ---
WOCRN Advanced Assessment Note - Skin Integrity Problem, Advanced Assess Left Lower Abdomen Dressing Type: Allevyn Life Dressing Description: Clean/Dry, Intact Closure Description: Sutures Exudate Amount: Minimal Exudate Color: Yellow, Brown Exudate Characteristic(s): Thick Integumentary Issue Intervention: Dressing Changed Faye Wound Tissue: Erythema Faye Wound Swelling: Moderate Wound Bed Constitution: Adhered Slough, Loose Slough Skin Integrity Problem Comment: Area is reported by patient to be numb. Wound was cleaned with ns and gauze. Wound bed is 100% slough. Small amount of loose slough was trimmed with foreceps and scissors. Wound does appear to be discrete and does not tunnel at this time. Wound care will alter the orders/plan to try and increase autolytic debridement. There is a suture in wound bed. Unclear when suture is due to be removed. Asked NOC BEBO Gillis to inform Vero of plan. Wound care will follow up again next week. Left Knee Surgical Wound/Incision Dressing Type: Alginate, Allevyn Life Dressing Description: Clean/Dry, Intact Exudate Amount: Scant Exudate Characteristic(s): Bloody Integumentary Issue Intervention: Visualized Under Dressing Wound Bed Constitution: Granulation Tissue Wound Edges: Epithelizing Skin Integrity Problem Comment: Healing wound. Alginate/Collagen was adhered to wound bed and was not integrating. Wound bed had little depth to it and orders will be altered to accomodate wound as it appears today. Wound care will follow up next week.
[2017-01-10] MEDS: PATCH REMOVAL 1 EA PATCH TD SCH (22:23)
[2017-01-11] MEDS: ACETAMINOPHEN 325 MG TAB PO SCH ×4 (06:18→23:24)
[2017-01-11] MEDS: SENNOSIDES/DOCUSATE SODIUM TAB PO SCH (08:57)
[2017-01-11] MEDS: LIDOCAINE 5% 1 EA PATCH TD SCH (08:58)
[2017-01-11] MEDS: POLYETHYLENE GLYCOL 3350 17 GM PKT PO SCH (08:58)
[2017-01-11] MEDS: TAMSULOSIN HCL 0.4 MG CAP PO SCH (08:59)
[2017-01-11] MEDS: ENOXAPARIN 30 MG/0.3 ML SYR SC SCH ×2 (08:59→20:07)
[2017-01-11] MEDS: PANTOPRAZOLE SODIUM 40 MG TAB PO SCH (08:59)
[2017-01-11] MEDS ORDERED: SENNOSIDES/DOCUSATE SODIUM TAB PO PRN (11:12)
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
[2017-01-11] MEDS: PATCH REMOVAL 1 EA PATCH TD SCH (20:08)
[2017-01-12] MEDS: ACETAMINOPHEN 325 MG TAB PO SCH ×3 (06:01→17:38)
[2017-01-12 08:28] LABS: ANION GAP 12 mEq/L (8-16); CALCIUM 8.6 mg/dL (8.5-10.4); CARBON DIOXIDE 21 mEq/l (22-31); CHLORIDE 103 mEq/L (97-110); CREATININE 0.7 mg/dL (0.7-1.3); GLOMERULAR FILTRATION RATE > 60; GLUCOSE 85 mg/dL (70-100); POTASSIUM 3.9 mEq/L (3.5-5.2); SODIUM 136 mEq/L (134-144)
[2017-01-12] MEDS: LIDOCAINE 5% 1 EA PATCH TD SCH (08:55)
[2017-01-12 08:59] LABS: TESTOSTERONE TOTAL 182 ng/dL (132-813)
[2017-01-12] MEDS: ENOXAPARIN 30 MG/0.3 ML SYR SC SCH ×2 (08:59→20:47)
[2017-01-12] MEDS: TAMSULOSIN HCL 0.4 MG CAP PO SCH (09:03)
[2017-01-12] MEDS: PANTOPRAZOLE SODIUM 40 MG TAB PO SCH (09:03)
[2017-01-12] MEDS: IBUPROFEN 600 MG TAB PO PRN (09:05)
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
[2017-01-12] MEDS: POLYETHYLENE GLYCOL 3350 17 GM PKT PO SCH (10:42)
[2017-01-12] MEDS: PATCH REMOVAL 1 EA PATCH TD SCH (20:48)
[2017-01-13] MEDS: ACETAMINOPHEN 325 MG TAB PO SCH ×5 (00:01→23:23)
[2017-01-13] MEDS: POLYETHYLENE GLYCOL 3350 17 GM PKT PO SCH (08:53)
[2017-01-13] MEDS: ENOXAPARIN 30 MG/0.3 ML SYR SC SCH ×2 (08:56→21:05)
[2017-01-13] MEDS: TAMSULOSIN HCL 0.4 MG CAP PO SCH (08:56)
[2017-01-13] MEDS: PANTOPRAZOLE SODIUM 40 MG TAB PO SCH (08:56)
[2017-01-13] MEDS: LIDOCAINE 5% 1 EA PATCH TD SCH (08:57)
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
[2017-01-13] MEDS: PATCH REMOVAL 1 EA PATCH TD SCH (21:05)
[2017-01-14] MEDS: ACETAMINOPHEN 325 MG TAB PO SCH ×4 (06:14→22:29)
[2017-01-14] MEDS: POLYETHYLENE GLYCOL 3350 17 GM PKT PO SCH (08:06)
[2017-01-14] MEDS: PANTOPRAZOLE SODIUM 40 MG TAB PO SCH (08:07)
[2017-01-14] MEDS: TAMSULOSIN HCL 0.4 MG CAP PO SCH (08:07)
[2017-01-14] MEDS: ENOXAPARIN 30 MG/0.3 ML SYR SC SCH ×2 (08:07→20:28)
[2017-01-14 09:45] LABS: ANION GAP 13 mEq/L (8-16); CALCIUM 8.8 mg/dL (8.5-10.4); CARBON DIOXIDE 21 mEq/l (22-31); CHLORIDE 104 mEq/L (97-110); CREATININE 0.6 mg/dL (0.7-1.3); GLOMERULAR FILTRATION RATE > 60; GLUCOSE 79 mg/dL (70-100); POTASSIUM 3.8 mEq/L (3.5-5.2); SODIUM 138 mEq/L (134-144)
[2017-01-14] MEDS: LIDOCAINE 5% 1 EA PATCH TD SCH (10:34)
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
[2017-01-14] MEDS: PATCH REMOVAL 1 EA PATCH TD SCH (20:49)
[2017-01-15] MEDS: ACETAMINOPHEN 325 MG TAB PO SCH ×2 (06:19→12:11)
[2017-01-15 07:51] LABS: ANION GAP 15 mEq/L (8-16); CALCIUM 8.6 mg/dL (8.5-10.4); CARBON DIOXIDE 20 mEq/l (22-31); CHLORIDE 103 mEq/L (97-110); CREATININE 0.6 mg/dL (0.7-1.3); GLOMERULAR FILTRATION RATE > 60; GLUCOSE 84 mg/dL (70-100); POTASSIUM 3.6 mEq/L (3.5-5.2); SODIUM 138 mEq/L (134-144)
[2017-01-15] MEDS: POLYETHYLENE GLYCOL 3350 17 GM PKT PO SCH (08:19)
[2017-01-15] MEDS: TAMSULOSIN HCL 0.4 MG CAP PO SCH (08:20)
[2017-01-15] MEDS: PANTOPRAZOLE SODIUM 40 MG TAB PO SCH (08:21)
[2017-01-15] MEDS: LIDOCAINE 5% 1 EA PATCH TD SCH (08:21)
[2017-01-15] MEDS: ENOXAPARIN 30 MG/0.3 ML SYR SC SCH (08:21)
[2017-01-15 09:17] VITALS: BP 114/74; PULSE 90; RESP 16; TEMP 98.1; O2SAT 95
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
== END 2017-01-15 16:08 | disposition home or self-care (01) | DRG 945 ==
LOC: BREH 14:57
PROVIDERS: ADMIT Internal Medicine; ATTEND Internal Medicine
PROC: F08Z0FZ Bathing/Showering Techniques Treatment using Assistive, Adaptive, Supportive or Protective Equipment (ICD-10-PCS; principal; 2017-01-01)
PROC: F07Z5FZ Bed Mobility Treatment using Assistive, Adaptive, Supportive or Protective Equipment (ICD-10-PCS; principal; 2017-01-01)
PROC: F08Z1FZ Dressing Techniques Treatment using Assistive, Adaptive, Supportive or Protective Equipment (ICD-10-PCS; principal; 2017-01-01)
PROC: F07Z9FZ Gait Training/Functional Ambulation Treatment using Assistive, Adaptive, Supportive or Protective Equipment (ICD-10-PCS; principal; 2017-01-01)
DX: S06.6X9D Traumatic subarachnoid hemorrhage with loss of consciousness of unspecified duration, subsequent encounter (principal); J18.9 Pneumonia, unspecified organism; S22.41XD Multiple fractures of ribs, right side, subsequent encounter for fracture with routine healing; S27.0XXD Traumatic pneumothorax, subsequent encounter; S27.329D Contusion of lung, unspecified, subsequent encounter; S72.351D Displaced comminuted fracture of shaft of right femur, subsequent encounter for closed fracture with routine healing; S72.051D Unspecified fracture of head of right femur, subsequent encounter for closed fracture with routine healing; S82.832D Other fracture of upper and lower end of left fibula, subsequent encounter for closed fracture with routine healing; S93.12 Dislocation of metatarsophalangeal joint; S51.011D Laceration without foreign body of right elbow, subsequent encounter; J90 Pleural effusion, not elsewhere classified; K59.00 Constipation, unspecified; H53.2 Diplopia; R33.9 Retention of urine, unspecified; R00.0 Tachycardia, unspecified; I48.91 Unspecified atrial fibrillation; G47.00 Insomnia, unspecified; D50.0 Iron deficiency anemia secondary to blood loss (chronic); V43.5 Car driver injured in collision with car, pick-up truck or van in traffic accident; Y92.410 Unspecified street and highway as the place of occurrence of the external cause; E87.1 Hypo-osmolality and hyponatremia; I89.8 Other specified noninfective disorders of lymphatic vessels and lymph nodes
CPT/HCPCS: 84481-90; 92507-GN; 92522-GN; 97110-GO; 97110-GP; 97116-GP; 97161-GP; 97166-GO; 97530-GO; 97530-GP; 97532-GO; 97535-GO; 97542-GP; J1650; Q9967

== ENCOUNTER → 2017-04-17 | Outpatient (CLI) | payer OTHER | LOC: FIMAGING 18:26 | PROVIDERS: ATTEND Family Medicine | DX: S09.90XA Unspecified injury of head, initial encounter (principal) ==